=== PATIENT | female | born 1955 | race Caucasian/White ===

== ENCOUNTER 2017-10-22 19:26 | Emergency (ER) | payer OTHER, SELFPAY ==
[2017-10-22 19:30] VITALS: BP 125/69; PULSE 88; RESP 18; TEMP 36.8; O2SAT 96; BMI 47.0
--- NOTE | 2017-10-22 20:07 | DI.US.S_ITS ---
PROCEDURE: US PERIPH VENOUS LOW EXTREM LT INDICATIONS: L. LE pain, edema, post flight TECHNIQUE: Real-time imaging, as well as color and pulse Doppler interrogation, were performed of the lower extremity deep veins from the inguinal ligament to the popliteal fossa. COMPARISON: [facility], , PERIPH.[place] EXT BILAT, 05/28/2016, 11:29. FINDINGS: The deep veins are normally compressible, and free of intraluminal thrombus. Color and pulse Doppler demonstrate normal phasic intraluminal flow. There is normal augmentation response to distal compression maneuver. IMPRESSION: No visualized deep venous thrombosis. Dictated by: Danyelle Rice M.D. on 10/22/2017 at 22:39 Approved by: Danyelle Rice M.D. on 10/22/2017 at 22:40
--- NOTE | 2017-10-22 20:10 | ED.EXTPRO ---
HPI - Extremity Problem <Doris Plata PA-C - Last Filed: 10/31/17 12:16> General Chief complaint: Extremity Problem,Nontraumatic Stated complaint: SWELLING OF FEET LEFT CALF PAIN Time Seen by Provider: 10/22/17 20:03 Source: patient Mode of arrival: ambulatory Limitations: no limitations History of Present Illness HPI Narrative: This 62-year-old female complains of left calf pain today. She states that she took a 10 day trip to [place] and the day after she got there noted increased swelling in both of her legs despite taking her hydrochlorothiazide in the mornings. She states that she had been on her feet and walking a lot. She does have some history of intermittent leg swelling though this is more severe. She also has a history of lymph node removal in her pelvis, not sure whether that continues. She states she was not concerned about this until she started to have left calf pain today without any trauma. She feels like that side is more swollen though typically she does get the most swelling on that side. She denies any chest pain or dyspnea. She denies any abdominal pain or nausea. She does note that she skipped her hydrochlorothiazide today and has been trying to drink more water because of feeling dehydrated from flying. Related Data Home Medications Medication Instructions Recorded Confirmed ALBUTEROL SULFATE (Ventolin / 1 - 2 puff INH #0 06/10/09 Proventil) HYDROCHLOROTHIAZIDE (#HCTZ) 25 mg PO Q DAY #0 02/15/11 beclomethasone dipropionate [Qvar] 40 mcg INH BID #0 05/24/16 esomeprazole magnesium [Nexium] #0 05/24/16 sertraline 25 PO #0 05/24/16 Previous Rx's Medication Instructions Recorded ciprofloxacin HCl [Cipro] 500 mg PO BID #20 tab 05/24/16 hydrocodone-acetaminophen 0 tab PO Q6HP PRN #15 tab 05/24/16 metoclopramide HCl 10 mg PO TIDP PRN #14 tab 05/24/16 metronidazole [Flagyl] 500 mg PO Q6H 10 Days #0 tab 05/24/16 Allergies Allergy/AdvReac Type Severity Reaction Status Date / Time CT DYE Allergy Severe STOP Uncoded 07/13/17 11:59 BREATHING Review of Systems <Doris Plata PA-C - Last Filed: 10/31/17 12:16> Review of Systems All systems reviewed & are unremarkable except as noted in HPI and below PFSH <ANTIONETTE Marcano Last Filed: 10/31/17 12:16> Comment: No ETOH or street drug Exam <ANTIONETTE Marcano Last Filed: 10/31/17 12:16> Narrative Exam Narrative: GENERAL APPEARANCE: Patient sitting comfortably, appears well. NECK: Supple, no JVD LUNGS: Clear to auscultation bilaterally. HEART: Rate and rhythm regular without murmur, normal S1 and S2, no S3 or S4. EXTREMITIES: Moderate pitting bilaterally most notable at the feet and ankles. Right ankle measures 26 cm, left 28. Right calf measures 48 cm, left 49. No tenderness over the right foot, ankle or calf. Moderate tenderness over the left mid calf. None elsewhere over the lower extremity MUSCULOSKELETAL: Full range of motion of both feet and ankles. No tenderness or effusion over the knees Initial Vital Signs Initial Vital Signs: Vital Signs Temperature 98.3 F 10/22/17 19:30 Pulse Rate 88 10/22/17 19:30 Respiratory Rate 18 10/22/17 19:30 Blood Pressure 125/69 H 10/22/17 19:30 Pulse Oximetry 96 10/22/17 19:30 <DO Sara Jorgensen Last Filed: 11/12/17 07:55> Initial Vital Signs Initial Vital Signs: Vital Signs Temperature 98.3 F 10/22/17 19:30 Pulse Rate 88 10/22/17 19:30 Respiratory Rate 18 10/22/17 19:30 Blood Pressure 125/69 H 10/22/17 19:30 Pulse Oximetry 96 10/22/17 19:30 Course <ANTIONETTE Marcano Last Filed: 10/31/17 12:16> Orders Ordered: ED Orders 10/22/17 20:07 US periph venous low extrem lt Stat Vital Signs - 8 hr 10/22/17 19:30 10/22/17 20:18 10/22/17 20:57 Temperature 98.3 F 97.6 F Pulse Rate 88 90 Pulse Rate [Bilateral Dorsalis Pedis] 80 Respiratory Rate 18 16 Blood Pressure 125/69 H Blood Pressure [Left Arm] 138/79 H Pulse Oximetry 96 97 <DO Sara Jorgensen Filed: 11/12/17 07:55> Orders Ordered: ED Orders 10/22/17 20:07 US perip venous low extrem lt Stat Vital Signs - 8 hr 10/22/17 19:30 10/22/17 20:18 10/22/17 20:57 Temperature 98.3 F 97.6 F Pulse Rate 88 90 Pulse Rate [Bilateral Dorsalis Pedis] 80 Respiratory Rate 18 16 Blood Pressure 125/69 H Blood Pressure [Left Arm] 138/79 H Pulse Oximetry 96 97 MDM - Extremity (Nontraumatic) <Doris Plata PA-C - Last Filed: 10/31/17 12:16> Imaging Data Venous US: Radiologist's impression: View Report History Print [address] [address] Ultrasound Report Signed Patient: Rosie Dale MR#: [id number] : 1955 Acct:[id number] Age/Sex: 62 / F Date of Service: 10/22/17 Loc: ED Accession Number: [id number] Procedure: perip venous low extrem lt Ordering Provider: Doris Plata P.A-C PROCEDURE: PERIP VENOUS LOW EXTREM LT INDICATIONS: L. LE pain, edema, post flight TECHNIQUE: Real-time imaging, as well as color and pulse Doppler interrogation, were performed of the lower extremity deep veins from the inguinal ligament to the popliteal fossa. COMPARISON: [facility], [facility].[place] EXT BILAT, 05/28/2016, 11:29. FINDINGS: The deep veins are normally compressible, and free of intraluminal thrombus. Color and pulse Doppler demonstrate normal phasic intraluminal flow. There is normal augmentation response to distal compression maneuver. IMPRESSION: No visualized deep venous thrombosis. Dictated by: Danyelle Rice M.D. on 10/22/2017 at 22:39 Approved by: Danyelle Rice M.D. on 10/22/2017 at 22:40 Discharge Plan Departure Patient Disposition: Home, Self-Care Clinical Impression: Edema of lower extremity, Pain of left calf Discharge Date/Time: 10/22/17 21:18 Interventions: ED Discharge Assessment Last Done: 10/22/17 21:16 Instructions: DI for Edema Due to Venous Stasis Activity Restrictions/Additional Instructions: I think that most of the chronic intermittent swelling in your legs is due to varicose veins, however this could also be partially due to having lymph nodes removed in the past. Please resume taking your hydrochlorothiazide. It is a good idea to use compression stockings when you travel. Drink when you are thirsty but do not overdo fluids or salty foods. Elevate your legs above your heart as much as possible. Talked with her PCP about perhaps changing your diuretic pill at least when traveling since you have noticed this is more of an issue with travel as it is for many people. You should return right away if you have acutely worsening symptoms or new symptoms such as chest pain or shortness of breath. Prescriptions: No Action ALBUTEROL SULFATE (Ventolin / Proventil) 1 - 2 puff INH Qty: 0 RF: 0 HYDROCHLOROTHIAZIDE (#HCTZ) 25 mg PO Q DAY Qty: 0 RF: 0 beclomethasone dipropionate [Qvar] 40 MCG/PUFF aerosol 40 mcg INH BID Qty: 0 RF: 0 esomeprazole magnesium [Nexium] 40 MG capsule,delayed release(DR/EC) Qty: 0 RF: 0 sertraline 25 MG tablet 25 PO Qty: 0 RF: 0 hydrocodone-acetaminophen 5 MG/325 MG tablet PO Q6HP PRNQty: 15 RF: 0 metronidazole [Flagyl] 500 MG tablet 500 mg PO Q6H 10 Days Qty: 0 RF: 0 ciprofloxacin HCl [Cipro] 500 MG tablet 500 mg PO BID Qty: 20 RF: 0 metoclopramide HCl 10 MG tablet 10 mg PO TIDP PRNQty: 14 RF: 0 Referrals: Tom Ramos MD [Primary Care Provider] - <Morgan Guevara DO - Last Filed: 11/12/17 07:55> [facility] ED Attending Cynature Attestation: I was immediately available in the department for consultation. Documentation has been reviewed. I agree with assessment and plan.
[2017-10-22 20:18] VITALS: PULSE 80
--- NOTE | 2017-10-22 20:21 | PC.NURSE ---
Pt recently went to [place] and [place] for 10 days. During her trip, she did a lot of walking and a lot of long bus rides. She had bilateral foot and ankle swelling with pain and tightness the entire trip. After her flight home yesterday, she developed left posterior calf pain that radiates up into the thigh. She has a history of uterine cancer and had several pelvic lymph nodes removed and reports she has had bilateral lower extremity swelling in the past, but not this severe.
--- NOTE | 2017-10-22 20:29 | ED_ITS ---
HPI - Extremity Problem <Doris Plata PA-C - Last Filed: 10/31/17 12:16> General Chief complaint: Extremity Problem,Nontraumatic Stated complaint: SWELLING OF FEET LEFT CALF PAIN Time Seen by Provider: 10/22/17 20:03 Source: patient Mode of arrival: ambulatory Limitations: no limitations History of Present Illness HPI Narrative: This 62-year-old female complains of left calf pain today. She states that she took a 10 day trip to [place] and the day after she got there noted increased swelling in both of her legs despite taking her hydrochlorothiazide in the mornings. She states that she had been on her feet and walking a lot. She does have some history of intermittent leg swelling though this is more severe. She also has a history of lymph node removal in her pelvis, not sure whether that continues. She states she was not concerned about this until she started to have left calf pain today without any trauma. She feels like that side is more swollen though typically she does get the most swelling on that side. She denies any chest pain or dyspnea. She denies any abdominal pain or nausea. She does note that she skipped her hydrochlorothiazide today and has been trying to drink more water because of feeling dehydrated from flying. Related Data Home Medications Medication Instructions Recorded Confirmed ALBUTEROL SULFATE (Ventolin / 1 - 2 puff INH #0 06/10/09 Proventil) HYDROCHLOROTHIAZIDE (#HCTZ) 25 mg PO Q DAY #0 02/15/11 beclomethasone dipropionate [Qvar] 40 mcg INH BID #0 05/24/16 esomeprazole magnesium [Nexium] #0 05/24/16 sertraline 25 PO #0 05/24/16 Previous Rx's Medication Instructions Recorded ciprofloxacin HCl [Cipro] 500 mg PO BID #20 tab 05/24/16 hydrocodone-acetaminophen 0 tab PO Q6HP PRN #15 tab 05/24/16 metoclopramide HCl 10 mg PO TIDP PRN #14 tab 05/24/16 metronidazole [Flagyl] 500 mg PO Q6H 10 Days #0 tab 05/24/16 Allergies Allergy/AdvReac Type Severity Reaction Status Date / Time CT DYE Allergy Severe STOP Uncoded 07/13/17 11:59 BREATHING Review of Systems <Doris Plata PA-C - Last Filed: 10/31/17 12:16> Review of Systems All systems reviewed & are unremarkable except as noted in HPI and below PFSH <ANTIONETTE Marcano Last Filed: 10/31/17 12:16> Comment: No ETOH or street drug Exam <ANTIONETTE Marcano Last Filed: 10/31/17 12:16> Narrative Exam Narrative: GENERAL APPEARANCE: Patient sitting comfortably, appears well. NECK: Supple, no JVD LUNGS: Clear to auscultation bilaterally. HEART: Rate and rhythm regular without murmur, normal S1 and S2, no S3 or S4. EXTREMITIES: Moderate pitting bilaterally most notable at the feet and ankles. Right ankle measures 26 cm, left 28. Right calf measures 48 cm, left 49. No tenderness over the right foot, ankle or calf. Moderate tenderness over the left mid calf. None elsewhere over the lower extremity MUSCULOSKELETAL: Full range of motion of both feet and ankles. No tenderness or effusion over the knees Initial Vital Signs Initial Vital Signs: Vital Signs Temperature 98.3 F 10/22/17 19:30 Pulse Rate 88 10/22/17 19:30 Respiratory Rate 18 10/22/17 19:30 Blood Pressure 125/69 H 10/22/17 19:30 Pulse Oximetry 96 10/22/17 19:30 <DO Sara Jorgensen Last Filed: 11/12/17 07:55> Initial Vital Signs Initial Vital Signs: Vital Signs Temperature 98.3 F 10/22/17 19:30 Pulse Rate 88 10/22/17 19:30 Respiratory Rate 18 10/22/17 19:30 Blood Pressure 125/69 H 10/22/17 19:30 Pulse Oximetry 96 10/22/17 19:30 Course <ANTIONETTE Marcano Last Filed: 10/31/17 12:16> Orders Ordered: ED Orders 10/22/17 20:07 US periph venous low extrem lt Stat Vital Signs - 8 hr 10/22/17 19:30 10/22/17 20:18 10/22/17 20:57 Temperature 98.3 F 97.6 F Pulse Rate 88 90 Pulse Rate [Bilateral Dorsalis Pedis] 80 Respiratory Rate 18 16 Blood Pressure 125/69 H Blood Pressure [Left Arm] 138/79 H Pulse Oximetry 96 97 <DO Sara Jorgensen Filed: 11/12/17 07:55> Orders Ordered: ED Orders 10/22/17 20:07 US perip venous low extrem lt Stat Vital Signs - 8 hr 10/22/17 19:30 10/22/17 20:18 10/22/17 20:57 Temperature 98.3 F 97.6 F Pulse Rate 88 90 Pulse Rate [Bilateral Dorsalis Pedis] 80 Respiratory Rate 18 16 Blood Pressure 125/69 H Blood Pressure [Left Arm] 138/79 H Pulse Oximetry 96 97 MDM - Extremity (Nontraumatic) <Doris Plata PA-C - Last Filed: 10/31/17 12:16> Imaging Data Venous US: Radiologist's impression: View Report History Print [address] [address] Ultrasound Report Signed Patient: Rosie Dale MR#: [id number] : 1955 Acct:[id number] Age/Sex: 62 / F Date of Service: 10/22/17 Loc: ED Accession Number: [id number] Procedure: perip venous low extrem lt Ordering Provider: Doris Plata P.A-C PROCEDURE: PERIP VENOUS LOW EXTREM LT INDICATIONS: L. LE pain, edema, post flight TECHNIQUE: Real-time imaging, as well as color and pulse Doppler interrogation, were performed of the lower extremity deep veins from the inguinal ligament to the popliteal fossa. COMPARISON: [facility], [facility].[place] EXT BILAT, 05/28/2016, 11:29. FINDINGS: The deep veins are normally compressible, and free of intraluminal thrombus. Color and pulse Doppler demonstrate normal phasic intraluminal flow. There is normal augmentation response to distal compression maneuver. IMPRESSION: No visualized deep venous thrombosis. Dictated by: Danyelle Rice M.D. on 10/22/2017 at 22:39 Approved by: Danyelle Rice M.D. on 10/22/2017 at 22:40 Discharge Plan Departure Patient Disposition: Home, Self-Care Clinical Impression: Edema of lower extremity, Pain of left calf Discharge Date/Time: 10/22/17 21:18 Interventions: ED Discharge Assessment Last Done: 10/22/17 21:16 Instructions: DI for Edema Due to Venous Stasis Activity Restrictions/Additional Instructions: I think that most of the chronic intermittent swelling in your legs is due to varicose veins, however this could also be partially due to having lymph nodes removed in the past. Please resume taking your hydrochlorothiazide. It is a good idea to use compression stockings when you travel. Drink when you are thirsty but do not overdo fluids or salty foods. Elevate your legs above your heart as much as possible. Talked with her PCP about perhaps changing your diuretic pill at least when traveling since you have noticed this is more of an issue with travel as it is for many people. You should return right away if you have acutely worsening symptoms or new symptoms such as chest pain or shortness of breath. Prescriptions: No Action ALBUTEROL SULFATE (Ventolin / Proventil) 1 - 2 puff INH Qty: 0 RF: 0 HYDROCHLOROTHIAZIDE (#HCTZ) 25 mg PO Q DAY Qty: 0 RF: 0 beclomethasone dipropionate [Qvar] 40 MCG/PUFF aerosol 40 mcg INH BID Qty: 0 RF: 0 esomeprazole magnesium [Nexium] 40 MG capsule,delayed release(DR/EC) Qty: 0 RF: 0 sertraline 25 MG tablet 25 PO Qty: 0 RF: 0 hydrocodone-acetaminophen 5 MG/325 MG tablet PO Q6HP PRNQty: 15 RF: 0 metronidazole [Flagyl] 500 MG tablet 500 mg PO Q6H 10 Days Qty: 0 RF: 0 ciprofloxacin HCl [Cipro] 500 MG tablet 500 mg PO BID Qty: 20 RF: 0 metoclopramide HCl 10 MG tablet 10 mg PO TIDP PRNQty: 14 RF: 0 Referrals: Tom Ramos MD [Primary Care Provider] - <Morgan Guevara DO - Last Filed: 11/12/17 07:55> [facility] ED Attending Cynature Attestation: I was immediately available in the department for consultation. Documentation has been reviewed. I agree with assessment and plan.
[2017-10-22 20:57] VITALS: BP 138/79; PULSE 90; RESP 16; TEMP 36.4; O2SAT 97
== END 2017-10-22 21:18 | disposition home or self-care (01) ==
PROVIDERS: Emergency Provider Internal Medicine; Family Provider Family Medicine; PCP Family Medicine
DX: M79.662 Pain in left lower leg (principal); R60.0 Localized edema
CPT/HCPCS: 93971; 99282; 99284

== ENCOUNTER → 2018-01-03 07:13 | Outpatient (CLI) | payer OTHER, SELFPAY ==
--- NOTE | 2018-01-03 | DI.US.S_ITS ---
PROCEDURE: US ABDOMEN COMPLETE INDICATIONS: FATTY LIVER, ELEVATED LIVER ENZYMES TECHNIQUE: Real-time scanning was performed of the abdominal and retroperitoneal organs, with image documentation. COMPARISON: [facility], CT, ABDOMEN/PELVIS WITHOUT CONTRAS, 05/24/2016, 2:48. FINDINGS: Liver: Liver is normal in size and homogeneous in echotexture. Gallbladder: Surgically absent. Biliary ducts: Intrahepatic bile ducts are non-dilated. Extrahepatic bile duct caliber measures 7.6 mm. Normal is 6-7 mm or less in diameter, or 10 mm or less post-cholecystectomy. Pancreas: Visualized portions of the pancreas are sonographically normal. Spleen: Spleen is normal in size and homogeneous in echotexture. Kidneys: Kidneys are normal in size and echotexture. Right kidney measures 10.8 cm long; left kidney measures 9.9 cm long. No hydronephrosis or nephrolithiasis. No solid masses. Aorta: Visualized aorta is normal in caliber at less than 3 cm. Iliacs: Proximal common iliac arteries are normal in caliber at less than 2.5 cm. IVC: Intrahepatic inferior vena cava is patent. Miscellaneous: No free abdominal fluid. IMPRESSION: 1. Increased hepatic echogenicity noted possibly related to hepatic steatosis but other sources of hepatocellular disease cannot be excluded. Recommend clinical correlation. Dictated by: Juventino SUGGS Interpreted: Lamine Leahy MD on 01/03/2018 at 9:14 Approved by: Lamine Leahy M.D. on 01/04/2018 at 12:32
== END ==
PROVIDERS: Family Provider Family Medicine; PCP Family Medicine; Referring Provider Radiology Therapeutic Radiology; Visit Provider Family Medicine
DX: K76.0 Fatty (change of) liver, not elsewhere classified (principal); R74.8 Abnormal levels of other serum enzymes
CPT/HCPCS: 76700

== ENCOUNTER → 2018-01-05 13:27 | Outpatient (CLI) | payer OTHER, SELFPAY ==
--- NOTE | 2018-01-06 09:40 | DIET.PN ---
Diabetes Intake: Initial Assessment Assess: 62 YOF referred for type 2 diabetes. Pt newly diagnosed with diabetes, but reports family history. She has been keeping a food journal and monitoring BG 2-3 times per day. She presents with some knowledge of diabetes and has began cutting down on serving sizes and carbohydrate foods, replacing them with high fat sources. Pt also reports medical history of fatty liver, IBS, abdominal pain, and post uterine cancer. Has taken several rounds of prednisone in the past which she believes could have been the start of the elevated blood sugar. Since making dietary changes she has noticed her readings have gone significantly down, starting in the 200's trending down to 150's. Patient has also lost 5 lbs in the last month. Labs: Per pt report: A1c: 9.9 FB-186 1-2 hr PP: 120-220 Meds: metformin 750mg BID Wt: 307 Ht: 67.5 BMI:47.4 (obese class III) DX: Altered nutrition related laboratory values related to impaired glucose metabolism, lack of previous exposure to nutrition information as evidenced by pt report, diagnosis of diabetes, previous diet high in refined carbohydrates. Intervention: 1. Completed intake assessment. Discussed barriers to care. 2. Discussed pathophysiology of diabetes. Reviewed A1c and its correlation to blood glucose numbers. Discussed recommended BG ranges. 3. Discussed importance of self-monitoring, how often, and when to check. Pt provided demonstration on use of glucometer. 4. Reviewed hyper/hypoglycemia and treatment. 5. Reviewed safe disposal of equipment (strip/lancets/insulin needles). 6. Created SMART goals for pt self-care and success. 7. Discussed program curriculum outline based on available referral hours. SMART Goals: 1. Pt would like to lose 1-2 lbs per week through changes in eating patterns and increasing physical activity. Pt will walk 20 min/day 5x/wk and increase as tolerated. 2. Pt A1c goal of 8.5 in the next 3 mo through dietary change, portion control, and CHO counting. Overall goal of 7.0 in the next 6 mo. 3. Pt will monitor BID QID, checking daily FBG and 2 hr PP. Monitor/Evaluate: Anticipate excellent compliance. Pt has requested full DSME program (15 available hours). Basic Nutrition scheduled for Jan 24.
--- NOTE | 2018-02-03 12:24 | DIET.PN ---
DIABETES Nutrition Initial Assessment:? ASSESS:???Pt recently [place] from [place]. Presented slightly discouraged with BG. States she has not been on her normal schedule with eating and monitoring. Has had an upset stomach (reflux like) for several weeks. She believes this to be gastroparesis or something similar. Pt also reports she has not worn her CPAP for some time which has affected her sleep habits. ? LABS: Per pt report:? FB-145 2hrPP: 120-150 (noticing more elevated BG in the morning) ? MEDS:?? metformin ? DIET: Per 24-hour recall:? Weight: 295.7 (down 11#) Ht:? 67.5 ? Exercise:? Walks, not consistent NUTRITION DX ? (1) Altered Nutrition related labs related to impaired glucose metabolism, lack of previous exposure to accurate nutrition information as evidenced by pt report, dx of diabetes, previous diet high in refined carbohydrates.? INTERVENTION(s): ??? (1) Discussed pathophysiology of diabetes and impact of nutrition/diet on blood sugar control.? Discussed fed versus non-fed state.? (2) Discussed the effect of carbohydrates/protein/fat on blood sugar control.? Stressed importance of consistent carbohydrate intake at each meal and provided instructions for recommended servings/portions of carbohydrates/protein per meal. Provided pt with individualized meal plan. ? (3) Reviewed carbohydrate counting and measuring carbohydrate content via servings sizes and reading nutrition labels.? Provided handouts.? (4) Discussed the difference between simple versus complex carbohydrates and the effect of fiber on blood sugar control.? Discussed various methods to increase fiber content in diet. ? (5) Stressed importance of meal timing and not going >4-5 hours between meals. Encouraged adding protein to evening snack to support glucose control overnight. Patient agreeable. ? (6) Discussed healthy weight loss goals of 1-2lbs per week through diet and exercise.? Pt agreeable to walking at least 30 minutes daily. MONITOR/EVALUATE: Anticipate excellent compliance.? Nutrition follow-up scheduled for 1 week to discuss protein, fat, sugar substitutes, dining out.
== END ==
PROVIDERS: Family Provider Family Medicine; PCP Family Medicine; Visit Provider Family Medicine
DX: E11.9 Type 2 diabetes mellitus without complications (principal)
CPT/HCPCS: 97802

== ENCOUNTER → 2018-02-03 10:59 | Outpatient (CLI) | payer OTHER, SELFPAY | PROVIDERS: Family Provider Family Medicine; PCP Family Medicine; Visit Provider Family Medicine | DX: E11.9 Type 2 diabetes mellitus without complications (principal) | CPT/HCPCS: 97803 ==

== ENCOUNTER → 2018-05-12 11:44 | Outpatient (CLI) | payer OTHER, SELFPAY ==
--- NOTE | 2018-05-12 | DI.MG.S_ITS ---
BILATERAL DIGITAL SCREENING MAMMOGRAM 3D/2D WITH CAD: 05/12/2018 CLINICAL: Routine screening. Family history of breast cancer. Comparison is made to exams dated: 02/06/2016 mammogram, 01/23/2013 mammogram - [facility], and 09/13/2011 mammogram - [facility]. There are scattered fibroglandular elements in both breasts. Current study was also evaluated with a Computer Aided Detection (CAD) system. No significant masses, calcifications, or other findings are seen in either breast. There has been no significant interval change. IMPRESSION: NEGATIVE There is no mammographic evidence of malignancy. A 1 year screening mammogram is recommended. This exam was interpreted at Station ID: [id number]. NOTE: For mammograms, a report in lay terms will be sent to the patient. Approximately 15% of breast malignancies will not be visualized mammographically. In the management of a palpable breast mass, a negative mammogram must not discourage biopsy of a clinically suspicious lesion. Electronically Signed By: Vladimir julio/octavio:05/12/2018 12:52:09 copy to: Eleuterio Joshi letter sent: Normal Exam ACR BI-RADS Category 1: Negative [id number]
== END ==
PROVIDERS: Family Provider Family Medicine; PCP Family Medicine; Visit Provider Family Medicine
DX: Z12.31 Encounter for screening mammogram for malignant neoplasm of breast (principal); Z80.3 Family history of malignant neoplasm of breast
CPT/HCPCS: 77063; 77067

== ENCOUNTER → 2019-11-25 14:56 | Outpatient (CLI) | payer OTHER, SELFPAY ==
[2019-11-26 11:11] LABS: COVID19 Sendout Not Detected (Not Detect)
== END ==
PROVIDERS: Family Provider Family Medicine; PCP Family Medicine; Visit Provider Nurse Practitioner
DX: Z11.59 Encounter for screening for other viral diseases (principal)
CPT/HCPCS: 87635

== ENCOUNTER → 2021-07-24 13:59 | Outpatient (ROUT) | payer OTHER, SELFPAY ==
[2021-07-24 14:14] LABS: D Dimer < 200 ng/mL (<230)
== END ==
PROVIDERS: Visit Provider Student in an Organized Health Care Education/Training Program
DX: M79.604 Pain in right leg (principal); I83.90 Asymptomatic varicose veins of unspecified lower extremity
CPT/HCPCS: 85379

== ENCOUNTER → 2022-03-02 12:14 | Outpatient (CLI) | payer OTHER, SELFPAY ==
--- NOTE | 2022-03-02 | DI.RAD.S_ITS ---
PROCEDURE: XR CHEST 2V INDICATIONS: Acute cough TECHNIQUE: 2 views of the chest were acquired. COMPARISON: [facility], , CHEST 2 VIEW, 03/10/2015, 17:20. FINDINGS: Surgical changes and devices: Cholecystectomy clips. Lungs and pleura: Lungs are clear. No pleural effusions or pneumothorax. Eventration of the right hemidiaphragm. Mediastinum: Mediastinal contours are normal. Heart size is normal. Bones and chest wall: No suspicious bony abnormalities. Soft tissues appear unremarkable. IMPRESSION: No acute cardiopulmonary disease process. Dictated by: Siomara Banks MD, PhD on 03/02/2022 at 13:56 Approved by: Siomara Banks MD, PhD on 03/02/2022 at 13:57
[2022-03-02 13:28] LABS: Influenza A - CEPHEID Flu A POSITIVE (NEGATIVE); Influenza B - CEPHEID Flu B NEGATIVE (NEGATIVE); Respiratory Syncytial Virus Negative (Negative)
[2022-03-02 13:32] LABS: COVID-19 CEPHEID 4-PLEX PCR Negative (Negative)
== END ==
PROVIDERS: PCP Registered Nurse; Referring Provider Registered Nurse; Visit Provider Registered Nurse
DX: J06.9 Acute upper respiratory infection, unspecified (principal); R05.1 Acute cough
CPT/HCPCS: 0241U; 71046

== ENCOUNTER → 2022-08-02 15:36 | Outpatient (CLI) | payer OTHER, SELFPAY ==
--- NOTE | 2022-08-02 | DI.US.S_ITS ---
PROCEDURE: US RENAL COMPLETE INDICATIONS: LEFT FLANK PAIN TECHNIQUE: Real-time scanning was performed of the kidneys and bladder, with image documentation. COMPARISON: [facility], US, US ABDOMEN COMPLETE, 01/03/2018, 7:52. FINDINGS: Limited examination due to patient body habitus and bowel gas. Kidneys: Right kidney measures 10.9 cm long; left kidney measures 10.0 cm long. Right renal cortical thickness is 1.9 cm; left renal cortical thickness is 1.0 cm. No obvious hydronephrosis or nephrolithiasis. Bladder: Pre-void bladder volume is 23 mL. Post-void images not obtained due to low initial bladder volume. Pre-void images demonstrate no intraluminal masses or stones. On pre-void images, both ureteral jets are noted with color Doppler interrogation. (Of note, ureteral jets may not be detectable in up to 25% of cases due to insufficient differences in specific gravity between ureteral and bladder urine). IMPRESSION: 1. Significantly limited exam due to technical factors as above. 2. No obvious nephrolithiasis or hydronephrosis identified, however neither can be excluded given the significant technical limitations. CT KUB could be obtained for further evaluation if indicated. Dictated by: Parth Richard M.D. on 08/02/2022 at 17:31 Approved by: Parth Richard M.D. on 08/02/2022 at 17:33
== END ==
PROVIDERS: PCP Registered Nurse; Referring Provider Registered Nurse; Visit Provider Registered Nurse
DX: N20.9 Urinary calculus, unspecified (principal); R10.32 Left lower quadrant pain
CPT/HCPCS: 76770

== ENCOUNTER → 2022-08-27 08:47 | Outpatient (CLI) | payer OTHER, SELFPAY ==
--- NOTE | 2022-08-27 | DI.CT.S_ITS ---
PROCEDURE: CT KIDNEY URETER BLADDER (KUB) INDICATIONS: Left lower quadrant pain/Urinary calculus TECHNIQUE: Axial sections were acquired from the lung bases to the pubic symphysis. Coronal and sagittal reformats were performed. For radiation dose reduction, the following was used: automated exposure control, adjustment of mA and/or kV according to patient size. COMPARISON: [facility], CT, ABDOMEN/PELVIS WITHOUT CONTRAS, 05/24/2016, 2:48. FINDINGS: Image quality: Excellent. Lung bases: Mild atelectasis in the right middle lobe. No pleural effusion. Heart: Coronary artery calcifications. URINARY: Right Kidney: No stones or hydronephrosis. Right Ureter: No hydroureter. Left Kidney: No stones or hydronephrosis. Left Ureter: No hydroureter. Bladder: Decompressed. No stones. Multiple phleboliths in the pelvis are unchanged. ABDOMEN: Liver: Unremarkable. Gallbladder: Absent. Biliary ducts: Unremarkable. Pancreas: Unremarkable. Spleen: Unremarkable. Adrenal Glands: No nodule. Stomach and Bowel: Stomach, small bowel loops, and colon are unremarkable. Diverticulosis. Normal appendix. Peritoneum: No abnormal intraperitoneal fluid. No free air. Ventral Wall: No hernia. Abdominal Nodes: No enlarged retroperitoneal or mesenteric lymph nodes. Vessels: Aorta and inferior vena cava are normal in size. PELVIS: Pelvic Organs: Uterus is absent. Pelvic Nodes: Unremarkable. Miscellaneous: No inguinal hernias are seen. Bones: No aggressive appearing lesion. Mild sclerosis at the left SI joint, (270). Bilateral hip DJD. IMPRESSION: No hydronephrosis. No kidney stones seen. Dictated by: Isidro Travis M.D. on 08/27/2022 at 10:09 Approved by: Isidro Travis M.D. on 08/27/2022 at 10:15
== END ==
PROVIDERS: PCP Registered Nurse; Referring Provider Registered Nurse; Visit Provider Registered Nurse
DX: R10.32 Left lower quadrant pain (principal)
CPT/HCPCS: 74176

== ENCOUNTER → 2022-11-05 12:42 | Outpatient (ROUT) | payer OTHER, SELFPAY ==
[2022-11-05 13:46] LABS: Influenza A - CEPHEID Flu A NEGATIVE (NEGATIVE); Influenza B - CEPHEID Flu B NEGATIVE (NEGATIVE); Respiratory Syncytial Virus Negative (Negative)
[2022-11-05 13:55] LABS: COVID-19 CEPHEID 4-PLEX PCR Negative (Negative)
== END ==
PROVIDERS: PCP Registered Nurse; Visit Provider Registered Nurse
DX: Z20.822 Contact with and (suspected) exposure to COVID-19 (principal)
CPT/HCPCS: 0241U

== ENCOUNTER → 2023-01-20 12:47 | Outpatient (CLI) | payer OTHER, SELFPAY ==
--- NOTE | 2023-01-20 | DI.MG.S_ITS ---
BILATERAL DIGITAL SCREENING MAMMOGRAM 3D/2D WITH CAD: 01/20/2023 CLINICAL: Routine screening. Family history of breast cancer. Comparison is made to exams dated: 05/12/2018 mammogram, 02/06/2016 mammogram, and 01/23/2013 mammogram - [facility]. There are scattered areas of fibroglandular density in both breasts (category b / 25%-50% glandular tissue). Current study was also evaluated with a Computer Aided Detection (CAD) system. No significant masses, calcifications, or other findings are seen in either breast. There has been no significant interval change. IMPRESSION: NEGATIVE There is no mammographic evidence of malignancy. A 1 year screening mammogram is recommended. Based on the Tyrer Cuzick model (a risk assessment model) the patient's lifetime risk is 8.2% and her 10 year risk is 4.6%. According to the ACR, ACS, and NCCN guidelines, an annual breast MRI exam along with mammogram is recommended if the patient's lifetime risk is 20% or greater. This exam was interpreted at Station ID: [id number]. NOTE: For mammograms, a report in lay terms will be sent to the patient. Approximately 15% of breast malignancies will not be visualized mammographically. In the management of a palpable breast mass, a negative mammogram must not discourage biopsy of a clinically suspicious lesion. Electronically Signed By: Margoth [email or web address]:01/20/2023 17:23:46 copy to: Eleuterio Joshi letter sent: Normal Exam ACR BI-RADS Category 1: Negative 3341F
== END ==
PROVIDERS: PCP Registered Nurse; Referring Provider Registered Nurse; Visit Provider Registered Nurse
DX: Z12.31 Encounter for screening mammogram for malignant neoplasm of breast (principal); Z80.3 Family history of malignant neoplasm of breast
CPT/HCPCS: 77063; 77067

== ENCOUNTER → 2023-08-22 14:25 | Outpatient (CLI) | payer OTHER, SELFPAY ==
--- NOTE | 2023-08-22 | DI.RAD.S_ITS ---
PROCEDURE: XR SACRUM COCCYX MIN 2V INDICATIONS: PAIN TECHNIQUE: 3 views of the sacrum and coccyx acquired. COMPARISON: None. FINDINGS: Bones: No fractures or dislocations. No suspicious bony lesions. Soft tissues: Visualized bowel gas pattern is normal. No suspicious soft tissue densities. IMPRESSION: No visualized acute fracture or dislocation. However, if clinical concern and/or pain persist, short interval imaging followup in 7-10 days is recommended, as occult injury cannot be definitively excluded. Dictated by: Danyelle Rice M.D. on 08/22/2023 at 20:24 Approved by: Danyelle Rice M.D. on 08/22/2023 at 20:25
--- NOTE | 2023-08-22 14:27 | DI.RAD.S_ITS ---
PROCEDURE: XR HAND RT MIN 3V INDICATIONS: INDEX FINGER SWELLING TECHNIQUE: 3 views of the hand(s) acquired. COMPARISON: None. FINDINGS: Bones: No fractures or dislocations. Carpal bones are normally aligned. No suspicious bony lesions. Scattered IP narrowing. No distinct erosions. 1st CMC narrowing is also present. Soft tissues: No suspicious soft tissue calcifications. IMPRESSION: Scattered IP and 1st CMC narrowing most consistent with degenerative change. Dictated by: Danyelle Rice M.D. on 08/22/2023 at 20:24 Approved by: Danyelle Rice M.D. on 08/22/2023 at 20:24
== END ==
PROVIDERS: PCP Registered Nurse; Referring Provider Registered Nurse; Visit Provider Registered Nurse
DX: M79.644 Pain in right finger(s) (principal); M53.3 Sacrococcygeal disorders, not elsewhere classified
CPT/HCPCS: 72220; 73130

== ENCOUNTER 2024-05-23 04:45 | Emergency (ER) | payer OTHER, SELFPAY ==
[2024-05-23] VITALS (54 sets, daily range): BP systolic 116–195; BP diastolic 57–101; PULSE 77–108; RESP 9–30; TEMP 37.1; O2SAT 93–98; BMI 43.7
--- NOTE | 2024-05-23 05:00 | DI.RAD.S_ITS ---
PROCEDURE: XR CHEST 1V INDICATIONS: chest pain TECHNIQUE: One view of the chest was acquired. COMPARISON: [facility], [place], XR CHEST 2V, 03/02/2022, 12:35. FINDINGS: Surgical changes and devices: None. Lungs and pleura: Lungs are clear. No pleural effusions or pneumothorax. Mediastinum: Mediastinal contours appear normal. Heart size is normal. Bones and chest wall: No suspicious bony lesions. Overlying soft tissues appear unremarkable. IMPRESSION: No acute cardiopulmonary abnormality is seen. Dictated by: Saúl Leija M.D. on 05/23/2024 at 8:54 Approved by: Saúl Leija M.D. on 05/23/2024 at 8:54
--- NOTE | 2024-05-23 05:00 | EKG_ITS ---
[address] [address] Test Date: 2024-05-23 Pat Name: Rosie Dale Department: [facility] Room: Gender: Female [employer]utter: ELIE : 1955 Requested By: Order Number: [id number] Reading MD: Georges Mc MD Measurements Intervals [place] Rate: 89 P: 47 DE: 132 QRS: 4 QRSD: 86 T: 47 QT: 384 QTc: 467 Interpretive Statements Sinus rhythm with premature supraventricular complexes Electronically Signed On 05-23-2024 7:30:45 PST by Georges Mc MD
--- NOTE | 2024-05-23 05:08 | PC.NURSE ---
Called RT for EKG
[2024-05-23 05:18] LABS: Add Manual Diff / Slide Review NO; Basophils Absolute Auto 0 /uL (0-100); Basophils Percent Auto 0.7 % (0-2); Eosinophils Absolute Auto 100 /uL (0-450); Eosinophils Percent Auto 1.8 % (2-4); Hematocrit 39.7 % (36-46); Hemoglobin 13.2 g/dL (12.0-16.0); Lymphocytes Absolute Auto 1300 /uL (1100-4500); Lymphocytes Percent Auto 19.1 % (25-40); Mean Corpuscular HGB Conc 33.3 % (30-36); Mean Corpuscular Hemoglobin 28.8 PG (26-34); Mean Corpuscular Volume 86.6 fL (80-100); Monocytes Absolute Auto 400 /uL (0-900); Monocytes Percent Auto 6.7 % (3-14); Neutrophils Absolute Auto 4800 /uL (1500-7000); Neutrophils Percent Auto 71.7 % (50-75); Platelet Count 286 X10^3/uL (150-400); Red Blood Cell Count 4.58 X10^6/uL (4.0-5.2); Red Cell Distribution Width 14.6 % (11.6-14.8); White Blood Cell Count 6.6 X10^3/uL (4.5-11.0)
[2024-05-23] MEDS: ASPIRIN 81 MG CHEW TAB 324 MG PO (05:18)
[2024-05-23 05:24] LABS: Prothrombin Time 11.2 SECONDS (9.4-12.5)
[2024-05-23 05:27] LABS: PTT Partial Thromboplastin Tim 38 SECONDS (25.1-36.5)
[2024-05-23 05:29] LABS: Alanine Aminotransferase 20 IU/L (<35); Albumin 4.2 g/dL (3.5-5.0); Albumin Globulin Ratio 1.4 (1.0-2.8); Alkaline Phosphatase 87 U/L (38-126); Aspartate Aminotransferase 22 IU/L (14-36); BUN Creatinine Ratio 24.7 (6-22); Bilirubin Total 0.9 mg/dL (0.2-1.3); Blood Urea Nitrogen 19 mg/dL (7-17); Calcium 9.7 mg/dL (8.4-10.2); Carbon Dioxide 27 mmol/L (22-32); Chloride 104 mmol/L (98-107); Creatine Kinase 47 U/L (30-135); Estimated Glomerular Filt Rate > 60 mL/min (>60); Globulin 2.9 g/dL (1.7-4.1); Glucose 199 mg/dL (80-110); HEMOLYSIS < 15 (0-50); Lipase 158 U/L (23-300); Magnesium 1.8 mg/dL (1.6-2.3); Potassium 4.2 mmol/L (3.4-5.1); Sodium 138 mmol/L (137-145); Total Protein 7.1 g/dL (6.3-8.2)
[2024-05-23 05:40] LABS: NT-proBNP (BNP-Adult 18+) 75 pg/mL (<125); Troponin I < 0.012 ng/mL (0.01-0.034)
--- NOTE | 2024-05-23 05:49 | ED_ITS ---
HPI - Chest Pain <Jimbo Latham MD - Last Filed: 05/25/24 03:22> General Chief Complaint: Chest Pain Stated Complaint: chest pain Time Seen by Provider: 05/23/24 05:05 Source: patient Mode of arrival: Ambulatory Limitations: no limitations History of Present Illness HPI narrative: 69-year-old female has recent upper respiratory sinus symptoms for 3 weeks, completed course of oral Augmentin for sinus infection a few days ago, still having cough productive of white sputum after previous yellow-green sputum, using inhaler. She complains of epigastric area lower chest discomfort. Radiates to her back. No diaphoresis. She has history of gastroparesis and reflux, this feels different. Related Data Home Medications Medication Instructions Recorded Confirmed blood sugar diagnostic (OneTouch #10 ea 08/21/21 05/23/24 Verio test strips) ciclesonide 80 mcg/actuation 1 puff inhalation BID 08/21/21 05/23/24 aerosol inhaler (Alvesco) famotidine 20 mg tablet (Pepcid) 20 mg PO BID PRN Acid Reflux 08/21/21 05/23/24 glipizide 5 mg tablet 10 mg PO BID 08/21/21 05/23/24 hydrochlorothiazide 25 mg tablet 25 mg PO DAILY 08/21/21 05/23/24 metformin 1,000 mg tablet 1,000 mg PO BID 08/21/21 05/23/24 pravastatin 10 mg tablet 10 mg PO DAILY 08/21/21 05/23/24 sertraline 25 mg tablet 25 mg PO DAILY #0 tabs 08/21/21 05/23/24 pantoprazole 40 mg tablet,delayed 40 mg PO DAILY 12/17/21 05/23/24 release acetaminophen 1,000 mg PO Q6HR PRN Pain (Scale 05/23/24 05/23/24 Score 1-3) albuterol sulfate 90 mcg/actuation 2 puff inhalation Q6H PRN wheezing 05/23/24 05/23/24 aerosol inhaler fluticasone furoate 27.5 1 - 2 spray intranasal DAILY 05/23/24 05/23/24 mcg/actuation nasal spray,suspension (Flonase Sensimist) insulin glargine-yfgn 100 unit/mL 40 unit SUBCUT 1XD 05/23/24 05/23/24 (3 mL) subcutaneous pen promethazine 25 mg tablet 25 mg PO QID PRN 05/23/24 05/23/24 nausea/vomiting/gastroparesis Allergies Allergy/AdvReac Type Severity Reaction Status Date / Time levofloxacin Allergy Severe Muscle Pain Verified 05/23/24 04:50 CT DYE Allergy Severe STOP Uncoded 12/17/21 13:01 BREATHING Patient History <Jimbo Latham MD - Last Filed: 05/25/24 03:22> Medical History Asthma Back pain Bilateral lower extremity edema Connective tissue disease Depression, major, 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) Fibromyalgia Foot pain GERD without esophagitis Headache History of colon polyps History of urinary incontinence (~2017) History of uterine cancer History of uterine cancer (~2013) HTN (hypertension) Knee pain Mixed hyperlipidemia Severe obesity Sjogren's syndrome Skin rash Sleep apnea (~1999) Surgical History Anesthesia Status post bilateral salpingo-oophorectomy (BSO) (~2014) Status post cholecystectomy (~1984) Family History Father COPD (chronic obstructive pulmonary disease) Sepsis Mother History of heart disease Hyperlipidemia Brother History of heart disease Diabetes mellitus Hyperlipidemia Sister COPD (chronic obstructive pulmonary disease) History of heart disease Diabetes mellitus Hyperlipidemia Grandmother Cancer Social History Smoking Status: Never smoker Smoking Status: Never smoker alcohol intake frequency: holidays/special occasions only Exam <Jimbo Latham MD - Last Filed: 05/25/24 03:22> Narrative Exam Narrative: GENERAL: Well-developed patient, in mild distress. HEAD: Atraumatic. Normocephalic. EYES: Pupils equal round and reactive. Extraocular motions intact. No scleral icterus. No injection or drainage. ENT: Nose without bleeding, purulent drainage. Throat without erythema, tonsillar hypertrophy or exudate. Airway patent. NECK: Trachea midline. Non tender CARDIOVASCULAR: Regular rate and rhythm without murmurs, gallops, or rubs. No chest wall tenderness. RESPIRATORY: Clear to auscultation. Breath sounds equal bilaterally. No wheezes, rales, or rhonchi. GASTROINTESTINAL: Abdomen soft, non-tender, nondistended. EXTREMITIES: No edema or joint tenderness. BACK: Nontender without deformity or crepitance. No flank tenderness. NEURO: AOx3. Motor functions grossly nonfocal SKIN: No rash or erythema of visible areas Initial Vital Signs Initial Vital Signs: Vital Signs Temperature 98.8 F 05/23/24 04:50 Pulse Rate 107 H 05/23/24 04:50 Respiratory Rate 22 05/23/24 04:50 Blood Pressure 182/90 H 05/23/24 04:50 Pulse Oximetry 97 05/23/24 04:50 Oxygen Delivery Method Room Air 05/23/24 04:50 <Freedom Apodaca MD - Last Filed: 05/25/24 12:39> Initial Vital Signs Initial Vital Signs: Vital Signs Temperature 98.8 F 05/23/24 04:50 Pulse Rate 107 H 05/23/24 04:50 Respiratory Rate 22 05/23/24 04:50 Blood Pressure 182/90 H 05/23/24 04:50 Pulse Oximetry 97 05/23/24 04:50 Oxygen Delivery Method Room Air 05/23/24 04:50 <Everette Mclaughlin DO - Last Filed: 05/24/24 18:03> Initial Vital Signs Initial Vital Signs: Vital Signs Temperature 98.8 F 05/23/24 04:50 Pulse Rate 107 H 05/23/24 04:50 Respiratory Rate 22 05/23/24 04:50 Blood Pressure 182/90 H 05/23/24 04:50 Pulse Oximetry 97 05/23/24 04:50 Oxygen Delivery Method Room Air 05/23/24 04:50 Course <Jimbo Latham MD - Last Filed: 05/25/24 03:22> Orders Ordered: Discontinued Medications Acetaminophen (Acetaminophen 325 Mg Tablet) 975 mg PO Q6H PRN PRN Reason: Pain, Mild (1-3) Last Admin: 05/24/24 15:08 Dose: 975 mg Documented By: NYA Albuterol (Albuterol 2.5 Mg/3 Ml Neb (Adult)) 2.5 mg INH NOW ONE Stop: 05/23/24 06:35 Last Admin: 05/23/24 06:47 Dose: 2.5 mg Documented By: JOSEF Albuterol (Albuterol 2.5 Mg/3 Ml Neb (Adult)) 2.5 mg INH NOW ONE Stop: 05/23/24 06:43 Last Admin: 05/23/24 06:57 Dose: 2.5 mg Documented By: JOSEF Aspirin (Aspirin 81 Mg Chew Tab) 324 mg PO NOW ONE Stop: 05/23/24 05:01 Last Admin: 05/23/24 05:18 Dose: 324 mg Documented By: Heparin Sodium/Dextrose (Heparin Drip) 25,000 unit in 500 mls @ 30.372 mls/hr IV CONT LIA; Protocol Last Admin: 05/23/24 14:37 Dose: Not Given Documented By: RANDOLPH Heparin Sodium/Dextrose (Heparin Drip) 25,000 unit in 500 mls @ 19.995 mls/hr IV CONT LIA; Protocol Last Titration: 05/24/24 19:27 Dose: 0 units/kg/hr, 0 mls/hr Documented By: NYA Co-signed By: CHITO Admin: 05/24/24 15:28 Dose: 7.9 units/kg/hr, 19.995 mls/hr Documented By: NYA Co-signed By: RANDOLPH(2) Titration: 05/24/24 15:28 Dose: Infused Documented By: NYA Co-signed By: RANDOLPH(2) Admin: 05/23/24 14:14 Dose: 7.9 units/kg/hr, 19.995 mls/hr Documented By: RANDOLPH Co-signed By: [email or web address]) Sodium Chloride (Normal Saline 0.9%) 1,000 mls @ 100 mls/hr IV CONT LIA Last Infusion: 05/24/24 17:24 Dose: 0 mls/hr Documented By: Admin: 05/24/24 08:06 Dose: 100 mls/hr Documented By: Infusion: 05/24/24 05:00 Dose: Infused Documented By: Admin: 05/23/24 19:00 Dose: 100 mls/hr Documented By: RANDOLPH Magnesium Sulfate (Magnesium Sulfate) 2 gm in 50 mls @ 150 mls/hr IV NOW ONE Stop: 05/24/24 16:58 Last Infusion: 05/24/24 17:19 Dose: Infused Documented By: NYA Co-signed By: RANDOLPH(2) Admin: 05/24/24 16:44 Dose: 150 mls/hr Documented By: NYA Co-signed By: LAURA Sodium Chloride (Normal Saline 0.9%) 1,000 mls @ 1,000 mls/hr IV BOLUS ONE Stop: 05/24/24 18:23 Last Infusion: 05/24/24 18:12 Dose: Infused Documented By: Admin: 05/24/24 17:25 Dose: 1,000 mls/hr Documented By: NYA Diltiazem HCl 125 mg/ Sodium (Chloride) 125 mls @ 5 mls/hr IV TITRATE LIA; Protocol Last Titration: 05/24/24 19:26 Dose: 0 mg/hr, 0 mls/hr Documented By: Admin: 05/24/24 18:08 Dose: 5 mg/hr, 5 mls/hr Documented By: NYA Metoprolol Tartrate (Metoprolol Tartrate 5 Mg/5 Ml Inj) 5 mg IV NOW ONE Stop: 05/24/24 15:32 Last Admin: 05/24/24 15:35 Dose: 5 mg Documented By: NYA Metoprolol Tartrate (Metoprolol Tartrate 5 Mg/5 Ml Inj) 5 mg IV NOW ONE Stop: 05/24/24 16:40 Last Admin: 05/24/24 17:54 Dose: Not Given Documented By: NYA Morphine Sulfate (Morphine 4 Mg/Ml Inj) 4 mg IV NOW ONE Stop: 05/23/24 11:29 Last Admin: 05/23/24 11:41 Dose: Not Given Documented By: RANDOLPH Nitroglycerin (Nitroglycerin Oint 1 Inch/Gm Oint...G.) 1 inch TOP NOW ONE Stop: 05/23/24 12:14 Last Admin: 05/23/24 12:22 Dose: 1 inch Documented By: RANDOLPH Ondansetron HCl (Ondansetron 4 Mg/2 Ml Inj) 4 mg IV NOW ONE Stop: 05/23/24 11:29 Last Admin: 05/23/24 11:50 Dose: Not Given Documented By: RANDOLPH Pantoprazole Sodium (Pantoprazole 40 Mg Vial) 40 mg IV NOW ONE Stop: 05/23/24 10:26 Last Admin: 05/23/24 11:01 Dose: 40 mg Documented By: RANDOLPH Pantoprazole Sodium (Pantoprazole 40 Mg Vial) 40 mg IV NOW ONE Stop: 05/24/24 08:03 Last Admin: 05/24/24 08:06 Dose: 40 mg Documented By: ELIUD Promethazine HCl (Promethazine 25 Mg Tablet) 25 mg PO Q6HR PRN PRN Reason: Nausea Last Admin: 05/24/24 09:34 Dose: 25 mg Documented By: Admin: 05/23/24 22:25 Dose: 25 mg Documented By: RANDOLPH Vital Signs Vital signs: Vital Signs - 8 hr 05/24/24 11:00 05/24/24 11:00 05/24/24 11:30 Pulse Rate 87 87 Respiratory Rate 12 15 Blood Pressure 135/77 Pulse Oximetry 93 94 05/24/24 11:30 05/24/24 12:00 05/24/24 12:00 Pulse Rate 103 H Respiratory Rate 16 Blood Pressure 119/73 154/92 H Pulse Oximetry 96 05/24/24 12:30 05/24/24 12:30 05/24/24 13:06 Pulse Rate 96 H 112 H Respiratory Rate 14 Blood Pressure 119/73 Pulse Oximetry 95 97 05/24/24 13:30 05/24/24 14:00 05/24/24 14:01 Pulse Rate 94 H 101 H 103 H Respiratory Rate 20 20 22 Blood Pressure Pulse Oximetry 97 96 96 05/24/24 14:01 05/24/24 14:30 05/24/24 15:06 Pulse Rate 90 91 H Respiratory Rate 13 Blood Pressure 132/65 Pulse Oximetry 96 98 05/24/24 15:09 05/24/24 15:09 05/24/24 15:10 Pulse Rate 158 H 161 H Respiratory Rate 19 20 Blood Pressure 107/65 Pulse Oximetry 97 98 05/24/24 15:10 05/24/24 15:30 05/24/24 15:30 Pulse Rate 160 H Respiratory Rate 18 Blood Pressure 113/57 L 111/77 Pulse Oximetry 97 05/24/24 16:00 05/24/24 16:30 05/24/24 16:58 Pulse Rate 170 H 153 H 155 H Respiratory Rate 20 14 15 Blood Pressure Pulse Oximetry 93 93 96 05/24/24 16:58 05/24/24 17:00 05/24/24 17:00 Pulse Rate 154 H Respiratory Rate 22 Blood Pressure 122/79 112/74 Pulse Oximetry 95 05/24/24 18:08 Pulse Rate 136 H Respiratory Rate Blood Pressure 132/66 Pulse Oximetry <Freedom Apodaca MD - Last Filed: 05/25/24 12:39> Orders Ordered: Discontinued Medications Acetaminophen (Acetaminophen 325 Mg Tablet) 975 mg PO Q6H PRN PRN Reason: Pain, Mild (1-3) Last Admin: 05/24/24 15:08 Dose: 975 mg Documented By: NYA Albuterol (Albuterol 2.5 Mg/3 Ml Neb (Adult)) 2.5 mg INH NOW ONE Stop: 05/23/24 06:35 Last Admin: 05/23/24 06:47 Dose: 2.5 mg Documented By: JOSEF Albuterol (Albuterol 2.5 Mg/3 Ml Neb (Adult)) 2.5 mg INH NOW ONE Stop: 05/23/24 06:43 Last Admin: 05/23/24 06:57 Dose: 2.5 mg Documented By: JOSEF Aspirin (Aspirin 81 Mg Chew Tab) 324 mg PO NOW ONE Stop: 05/23/24 05:01 Last Admin: 05/23/24 05:18 Dose: 324 mg Documented By: Heparin Sodium/Dextrose (Heparin Drip) 25,000 unit in 500 mls @ 30.372 mls/hr IV CONT LIA; Protocol Last Admin: 05/23/24 14:37 Dose: Not Given Documented By: RANDOLPH Heparin Sodium/Dextrose (Heparin Drip) 25,000 unit in 500 mls @ 19.995 mls/hr IV CONT LIA; Protocol Last Titration: 05/24/24 19:27 Dose: 0 units/kg/hr, 0 mls/hr Documented By: NYA Co-signed By: CHITO Admin: 05/24/24 15:28 Dose: 7.9 units/kg/hr, 19.995 mls/hr Documented By: NYA Co-signed By: RANDOLPH(2) Titration: 05/24/24 15:28 Dose: Infused Documented By: NYA Co-signed By: RANDOLPH(2) Admin: 05/23/24 14:14 Dose: 7.9 units/kg/hr, 19.995 mls/hr Documented By: RANDOLPH Co-signed By: RANDOLPH(2) Sodium Chloride (Normal Saline 0.9%) 1,000 mls @ 100 mls/hr IV CONT LIA Last Infusion: 05/24/24 17:24 Dose: 0 mls/hr Documented By: Admin: 05/24/24 08:06 Dose: 100 mls/hr Documented By: Infusion: 05/24/24 05:00 Dose: Infused Documented By: Admin: 05/23/24 19:00 Dose: 100 mls/hr Documented By: RANDOLPH Magnesium Sulfate (Magnesium Sulfate) 2 gm in 50 mls @ 150 mls/hr IV NOW ONE Stop: 05/24/24 16:58 Last Infusion: 05/24/24 17:19 Dose: Infused Documented By: NYA Co-signed By: RANDOLPH(2) Admin: 05/24/24 16:44 Dose: 150 mls/hr Documented By: NYA Co-signed By: LAURA Sodium Chloride (Normal Saline 0.9%) 1,000 mls @ 1,000 mls/hr IV BOLUS ONE Stop: 05/24/24 18:23 Last Infusion: 05/24/24 18:12 Dose: Infused Documented By: Admin: 05/24/24 17:25 Dose: 1,000 mls/hr Documented By: NYA Diltiazem HCl 125 mg/ Sodium (Chloride) 125 mls @ 5 mls/hr IV TITRATE LIA; Protocol Last Titration: 05/24/24 19:26 Dose: 0 mg/hr, 0 mls/hr Documented By: Admin: 05/24/24 18:08 Dose: 5 mg/hr, 5 mls/hr Documented By: NYA Metoprolol Tartrate (Metoprolol Tartrate 5 Mg/5 Ml Inj) 5 mg IV NOW ONE Stop: 05/24/24 15:32 Last Admin: 05/24/24 15:35 Dose: 5 mg Documented By: NYA Metoprolol Tartrate (Metoprolol Tartrate 5 Mg/5 Ml Inj) 5 mg IV NOW ONE Stop: 05/24/24 16:40 Last Admin: 05/24/24 17:54 Dose: Not Given Documented By: NYA Morphine Sulfate (Morphine 4 Mg/Ml Inj) 4 mg IV NOW ONE Stop: 05/23/24 11:29 Last Admin: 05/23/24 11:41 Dose: Not Given Documented By: RANDOLPH Nitroglycerin (Nitroglycerin Oint 1 Inch/Gm Oint...G.) 1 inch TOP NOW ONE Stop: 05/23/24 12:14 Last Admin: 05/23/24 12:22 Dose: 1 inch Documented By: RANDOLPH Ondansetron HCl (Ondansetron 4 Mg/2 Ml Inj) 4 mg IV NOW ONE Stop: 05/23/24 11:29 Last Admin: 05/23/24 11:50 Dose: Not Given Documented By: RANDOLPH Pantoprazole Sodium (Pantoprazole 40 Mg Vial) 40 mg IV NOW ONE Stop: 05/23/24 10:26 Last Admin: 05/23/24 11:01 Dose: 40 mg Documented By: RANDOLPH Pantoprazole Sodium (Pantoprazole 40 Mg Vial) 40 mg IV NOW ONE Stop: 05/24/24 08:03 Last Admin: 05/24/24 08:06 Dose: 40 mg Documented By: ELIUD Promethazine HCl (Promethazine 25 Mg Tablet) 25 mg PO Q6HR PRN PRN Reason: Nausea Last Admin: 05/24/24 09:34 Dose: 25 mg Documented By: Admin: 05/23/24 22:25 Dose: 25 mg Documented By: RANDOLPH Vital Signs Vital signs: Vital Signs - 8 hr 05/24/24 11:00 05/24/24 11:00 05/24/24 11:30 Pulse Rate 87 87 Respiratory Rate 12 15 Blood Pressure 135/77 Pulse Oximetry 93 94 05/24/24 11:30 05/24/24 12:00 05/24/24 12:00 Pulse Rate 103 H Respiratory Rate 16 Blood Pressure 119/73 154/92 H Pulse Oximetry 96 05/24/24 12:30 05/24/24 12:30 05/24/24 13:06 Pulse Rate 96 H 112 H Respiratory Rate 14 Blood Pressure 119/73 Pulse Oximetry 95 97 05/24/24 13:30 05/24/24 14:00 05/24/24 14:01 Pulse Rate 94 H 101 H 103 H Respiratory Rate 20 20 22 Blood Pressure Pulse Oximetry 97 96 96 05/24/24 14:01 05/24/24 14:30 05/24/24 15:06 Pulse Rate 90 91 H Respiratory Rate 13 Blood Pressure 132/65 Pulse Oximetry 96 98 05/24/24 15:09 05/24/24 15:09 05/24/24 15:10 Pulse Rate 158 H 161 H Respiratory Rate 19 20 Blood Pressure 107/65 Pulse Oximetry 97 98 05/24/24 15:10 05/24/24 15:30 05/24/24 15:30 Pulse Rate 160 H Respiratory Rate 18 Blood Pressure 113/57 L 111/77 Pulse Oximetry 97 05/24/24 16:00 05/24/24 16:30 05/24/24 16:58 Pulse Rate 170 H 153 H 155 H Respiratory Rate 20 14 15 Blood Pressure Pulse Oximetry 93 93 96 05/24/24 16:58 05/24/24 17:00 05/24/24 17:00 Pulse Rate 154 H Respiratory Rate 22 Blood Pressure 122/79 112/74 Pulse Oximetry 95 05/24/24 18:08 Pulse Rate 136 H Respiratory Rate Blood Pressure 132/66 Pulse Oximetry <Everette Mclaughlin, DO - Last Filed: 05/24/24 18:03> Orders Ordered: Discontinued Medications Acetaminophen (Acetaminophen 325 Mg Tablet) 975 mg PO Q6H PRN PRN Reason: Pain, Mild (1-3) Last Admin: 05/24/24 15:08 Dose: 975 mg Documented By: NYA Albuterol (Albuterol 2.5 Mg/3 Ml Neb (Adult)) 2.5 mg INH NOW ONE Stop: 05/23/24 06:35 Last Admin: 05/23/24 06:47 Dose: 2.5 mg Documented By: JOSEF Albuterol (Albuterol 2.5 Mg/3 Ml Neb (Adult)) 2.5 mg INH NOW ONE Stop: 05/23/24 06:43 Last Admin: 05/23/24 06:57 Dose: 2.5 mg Documented By: JOSEF Aspirin (Aspirin 81 Mg Chew Tab) 324 mg PO NOW ONE Stop: 05/23/24 05:01 Last Admin: 05/23/24 05:18 Dose: 324 mg Documented By: Heparin Sodium/Dextrose (Heparin Drip) 25,000 unit in 500 mls @ 30.372 mls/hr IV CONT LIA; Protocol Last Admin: 05/23/24 14:37 Dose: Not Given Documented By: RANDOLPH Heparin Sodium/Dextrose (Heparin Drip) 25,000 unit in 500 mls @ 19.995 mls/hr IV CONT LIA; Protocol Last Titration: 05/24/24 19:27 Dose: 0 units/kg/hr, 0 mls/hr Documented By: NYA Co-signed By: CHITO Admin: 05/24/24 15:28 Dose: 7.9 units/kg/hr, 19.995 mls/hr Documented By: NYA Co-signed By: RANDOLPH(2) Titration: 05/24/24 15:28 Dose: Infused Documented By: NYA Co-signed By: RANDOLPH(2) Admin: 05/23/24 14:14 Dose: 7.9 units/kg/hr, 19.995 mls/hr Documented By: RANDOLPH Co-signed By: RANDOLPH(2) Sodium Chloride (Normal Saline 0.9%) 1,000 mls @ 100 mls/hr IV CONT LIA Last Infusion: 05/24/24 17:24 Dose: 0 mls/hr Documented By: Admin: 05/24/24 08:06 Dose: 100 mls/hr Documented By: Infusion: 05/24/24 05:00 Dose: Infused Documented By: Admin: 05/23/24 19:00 Dose: 100 mls/hr Documented By: RANDOLPH Magnesium Sulfate (Magnesium Sulfate) 2 gm in 50 mls @ 150 mls/hr IV NOW ONE Stop: 05/24/24 16:58 Last Infusion: 05/24/24 17:19 Dose: Infused Documented By: NYA Co-signed By: RANDOLPH(2) Admin: 05/24/24 16:44 Dose: 150 mls/hr Documented By: NYA Co-signed By: LAURA Sodium Chloride (Normal Saline 0.9%) 1,000 mls @ 1,000 mls/hr IV BOLUS ONE Stop: 05/24/24 18:23 Last Infusion: 05/24/24 18:12 Dose: Infused Documented By: Admin: 05/24/24 17:25 Dose: 1,000 mls/hr Documented By: NYA Diltiazem HCl 125 mg/ Sodium (Chloride) 125 mls @ 5 mls/hr IV TITRATE LIA; Protocol Last Titration: 05/24/24 19:26 Dose: 0 mg/hr, 0 mls/hr Documented By: Admin: 05/24/24 18:08 Dose: 5 mg/hr, 5 mls/hr Documented By: NYA Metoprolol Tartrate (Metoprolol Tartrate 5 Mg/5 Ml Inj) 5 mg IV NOW ONE Stop: 05/24/24 15:32 Last Admin: 05/24/24 15:35 Dose: 5 mg Documented By: NYA Metoprolol Tartrate (Metoprolol Tartrate 5 Mg/5 Ml Inj) 5 mg IV NOW ONE Stop: 05/24/24 16:40 Last Admin: 05/24/24 17:54 Dose: Not Given Documented By: NYA Morphine Sulfate (Morphine 4 Mg/Ml Inj) 4 mg IV NOW ONE Stop: 05/23/24 11:29 Last Admin: 05/23/24 11:41 Dose: Not Given Documented By: RANDOLPH Nitroglycerin (Nitroglycerin Oint 1 Inch/Gm Oint...G.) 1 inch TOP NOW ONE Stop: 05/23/24 12:14 Last Admin: 05/23/24 12:22 Dose: 1 inch Documented By: RANDOLPH Ondansetron HCl (Ondansetron 4 Mg/2 Ml Inj) 4 mg IV NOW ONE Stop: 05/23/24 11:29 Last Admin: 05/23/24 11:50 Dose: Not Given Documented By: RANDOLPH Pantoprazole Sodium (Pantoprazole 40 Mg Vial) 40 mg IV NOW ONE Stop: 05/23/24 10:26 Last Admin: 05/23/24 11:01 Dose: 40 mg Documented By: RANDOLPH Pantoprazole Sodium (Pantoprazole 40 Mg Vial) 40 mg IV NOW ONE Stop: 05/24/24 08:03 Last Admin: 05/24/24 08:06 Dose: 40 mg Documented By: ELIUD Promethazine HCl (Promethazine 25 Mg Tablet) 25 mg PO Q6HR PRN PRN Reason: Nausea Last Admin: 05/24/24 09:34 Dose: 25 mg Documented By: Admin: 05/23/24 22:25 Dose: 25 mg Documented By: RANDOLPH Vital Signs Vital signs: Vital Signs - 8 hr 05/24/24 11:00 05/24/24 11:00 05/24/24 11:30 Pulse Rate 87 87 Respiratory Rate 12 15 Blood Pressure 135/77 Pulse Oximetry 93 94 05/24/24 11:30 05/24/24 12:00 05/24/24 12:00 Pulse Rate 103 H Respiratory Rate 16 Blood Pressure 119/73 154/92 H Pulse Oximetry 96 05/24/24 12:30 05/24/24 12:30 05/24/24 13:06 Pulse Rate 96 H 112 H Respiratory Rate 14 Blood Pressure 119/73 Pulse Oximetry 95 97 05/24/24 13:30 05/24/24 14:00 05/24/24 14:01 Pulse Rate 94 H 101 H 103 H Respiratory Rate 20 20 22 Blood Pressure Pulse Oximetry 97 96 96 05/24/24 14:01 05/24/24 14:30 05/24/24 15:06 Pulse Rate 90 91 H Respiratory Rate 13 Blood Pressure 132/65 Pulse Oximetry 96 98 05/24/24 15:09 05/24/24 15:09 05/24/24 15:10 Pulse Rate 158 H 161 H Respiratory Rate 19 20 Blood Pressure 107/65 Pulse Oximetry 97 98 05/24/24 15:10 05/24/24 15:30 05/24/24 15:30 Pulse Rate 160 H Respiratory Rate 18 Blood Pressure 113/57 L 111/77 Pulse Oximetry 97 05/24/24 16:00 05/24/24 16:30 05/24/24 16:58 Pulse Rate 170 H 153 H 155 H Respiratory Rate 20 14 15 Blood Pressure Pulse Oximetry 93 93 96 05/24/24 16:58 05/24/24 17:00 05/24/24 17:00 Pulse Rate 154 H Respiratory Rate 22 Blood Pressure 122/79 112/74 Pulse Oximetry 95 05/24/24 18:08 Pulse Rate 136 H Respiratory Rate Blood Pressure 132/66 Pulse Oximetry MDM - Chest Pain <Jimbo Latham MD - Last Filed: 05/25/24 03:22> Lab Data Attestation: I reviewed the patient's lab results. Lab results narrative: White blood cell count 6600, hemoglobin 13.2, platelets adequate. Glucose 199. BUN 19 with creatinine 0.77. Electrolytes unremarkable. Liver functions and lipase negative. Troponin negative. 05/24/24 02:08 05/24/24 03:02 Labs: Lab Results 05/23/24 05/23/24 05/23/24 Range/Units 05:08 07:26 20:07 WBC 6.6 (4.5-11.0) X10^3/uL RBC 4.58 (4.0-5.2) X10^6/uL Hgb 13.2 (12.0-16.0) g/dL Hct 39.7 (36-46) % MCV 86.6 (80-100) fL MCH 28.8 (26-34) PG MCHC 33.3 (30-36) % RDW 14.6 (11.6-14.8) % Plt Count 286 (150-400) X10^3/uL Neut % (Auto) 71.7 (50-75) % Lymph % (Auto) 19.1 L (25-40) % Harding % (Auto) 6.7 (3-14) % Eos % (Auto) 1.8 L (2-4) % Baso % (Auto) 0.7 (0-2) % Neut # (Auto) 4800 (0583-9158) /uL Lymph # (Auto) 1300 (9589-5566) /uL Harding # (Auto) 400 (0-900) /uL Eos # (Auto) 100 (0-450) /uL Baso # (Auto) 0 (0-100) /uL PT 11.2 (9.4-12.5) SECONDS INR 1.0 (0.9-1.3) APTT 38 H 50 H D (25.1-36.5) SECONDS Sodium 138 (137-145) mmol/L Potassium 4.2 (3.4-5.1) mmol/L Chloride 104 (98-107) mmol/L Carbon Dioxide 27 (22-32) mmol/L BUN 19 H (7-17) mg/dL Creatinine 0.77 (0.52-1.04) mg/dL Estimated GFR > 60 (>60) mL/min BUN/Creatinine Ratio 24.7 H (6-22) Glucose 199 H (80-110) mg/dL Calcium 9.7 (8.4-10.2) mg/dL Magnesium 1.8 (1.6-2.3) mg/dL Total Bilirubin 0.9 (0.2-1.3) mg/dL AST 22 (14-36) IU/L ALT 20 (<35) IU/L Alkaline Phosphatase 87 (38-126) U/L Total Creatine Kinase 47 (30-135) U/L Troponin I < 0.012 < 0.012 (0.01-0.034) ng/mL NT-Pro-B Natriuret Pep 75 (<125) pg/mL Total Protein 7.1 (6.3-8.2) g/dL Albumin 4.2 (3.5-5.0) g/dL Globulin 2.9 (1.7-4.1) g/dL Albumin/Globulin Ratio 1.4 (1.0-2.8) Lipase 158 (23-300) U/L 05/24/24 05/24/24 05/24/24 Range/Units 01:51 02:08 03:02 WBC 6.3 (4.5-11.0) X10^3/uL RBC 4.61 (4.0-5.2) X10^6/uL Hgb 13.1 (12.0-16.0) g/dL Hct 40.1 (36-46) % MCV 87.0 (80-100) fL MCH 28.5 (26-34) PG MCHC 32.8 (30-36) % RDW 14.7 (11.6-14.8) % Plt Count 238 (150-400) X10^3/uL Neut % (Auto) 81.6 H (50-75) % Lymph % (Auto) 13.2 L (25-40) % Harding % (Auto) 3.5 (3-14) % Eos % (Auto) 1.0 L (2-4) % Baso % (Auto) 0.7 (0-2) % Neut # (Auto) 5200 (4961-7393) /uL Lymph # (Auto) 800 L (6928-4422) /uL Harding # (Auto) 200 (0-900) /uL Eos # (Auto) 100 (0-450) /uL Baso # (Auto) 0 (0-100) /uL PT (9.4-12.5) SECONDS INR (0.9-1.3) APTT 53 H (25.1-36.5) SECONDS Sodium 138 (137-145) mmol/L Potassium 4.0 (3.4-5.1) mmol/L Chloride 106 (98-107) mmol/L Carbon Dioxide 27 (22-32) mmol/L BUN 10 (7-17) mg/dL Creatinine 0.60 (0.52-1.04) mg/dL Estimated GFR > 60 (>60) mL/min BUN/Creatinine Ratio 16.7 (6-22) Glucose 215 H (80-110) mg/dL Calcium 8.9 (8.4-10.2) mg/dL Magnesium (1.6-2.3) mg/dL Total Bilirubin 1.1 (0.2-1.3) mg/dL AST 22 (14-36) IU/L ALT 18 (<35) IU/L Alkaline Phosphatase 68 (38-126) U/L Total Creatine Kinase (30-135) U/L Troponin I (0.01-0.034) ng/mL NT-Pro-B Natriuret Pep (<125) pg/mL Total Protein 6.4 (6.3-8.2) g/dL Albumin 3.7 (3.5-5.0) g/dL Globulin 2.7 (1.7-4.1) g/dL Albumin/Globulin Ratio 1.4 (1.0-2.8) Lipase (23-300) U/L 05/24/24 05/24/24 Range/Units 08:30 14:14 WBC (4.5-11.0) X10^3/uL RBC (4.0-5.2) X10^6/uL Hgb (12.0-16.0) g/dL Hct (36-46) % MCV (80-100) fL MCH (26-34) PG MCHC (30-36) % RDW (11.6-14.8) % Plt Count (150-400) X10^3/uL Neut % (Auto) (50-75) % Lymph % (Auto) (25-40) % Harding % (Auto) (3-14) % Eos % (Auto) (2-4) % Baso % (Auto) (0-2) % Neut # (Auto) (9986-2503) /uL Lymph # (Auto) (5596-9516) /uL Harding # (Auto) (0-900) /uL Eos # (Auto) (0-450) /uL Baso # (Auto) (0-100) /uL PT (9.4-12.5) SECONDS INR (0.9-1.3) APTT 52 H 57 H (25.1-36.5) SECONDS Sodium (137-145) mmol/L Potassium (3.4-5.1) mmol/L Chloride (98-107) mmol/L Carbon Dioxide (22-32) mmol/L BUN (7-17) mg/dL Creatinine (0.52-1.04) mg/dL Estimated GFR (>60) mL/min BUN/Creatinine Ratio (6-22) Glucose (80-110) mg/dL Calcium (8.4-10.2) mg/dL Magnesium (1.6-2.3) mg/dL Total Bilirubin (0.2-1.3) mg/dL AST (14-36) IU/L ALT (<35) IU/L Alkaline Phosphatase (38-126) U/L Total Creatine Kinase (30-135) U/L Troponin I (0.01-0.034) ng/mL NT-Pro-B Natriuret Pep (<125) pg/mL Total Protein (6.3-8.2) g/dL Albumin (3.5-5.0) g/dL Globulin (1.7-4.1) g/dL Albumin/Globulin Ratio (1.0-2.8) Lipase (23-300) U/L Point of Care Testing Glucose POC 183 ECG Data Attestation: I personally reviewed and interpreted this ECG as follows: Interpretation: Normal sinus rhythm with rate of 89, no obvious ST segment elevation or depression changes. [place] 132, QRS 86, QTC 467. MDM Narrative Medical decision making narrative: 69-year-old female with lower chest upper epigastric discomfort, recent upper respiratory infections, treated with course of oral Augmentin antibiotic for sinus infection and ear infection, still coughing, using inhaler, requests breathing treatment. No oxygen requirement. No reproducibility epigastrium or chest for her discomfort. EKG without ischemic changes. Troponin negative. Repeat EKG at 10:15 a.m.. Sinus rhythm rate [address] elevation or depression Chest x-ray single view. No acute findings. See tele radiology report. CT chest abdomen pelvis, coronary artery calcification seen. Otherwise no acute finding 0700, Interval troponin pending, signed out to Dr Apodaca. troponin less than 0.012 x 2 May 23, 2024 at 7:[address] Apodaca: Sign out from Dr. Latham, patient here for non reproducible epigastric chest pain radiating to the back. Second troponin results are pending. 7:[address] Apodaca: Spoke with patient. She states she has been wearing last couple of minutes have had any exertional shortness breath and off and on chest discomfort and epigastric discomfort. She states she does have history of gastritis and gastroparesis but this feels different. She has had upper respiratory symptoms for the past days but it does not reproduce her symptoms. She has medical care with [facility] and she understands we will need to call them for authorization for admission or transfer. At this time we do not beds here and may need to transfer to another outlying hospital, she understands. Patient does have mild epigastric tenderness. No chest pain at this time. 8:19 a.m.. Spoke with [facility] insurance, Dr. Akers, he approves for patient to be admitted or transferred. 1:49 p.m.. Spoke with [facility], dr sommer, who will follow up patient in consult. Recommends heparin started now. Would recommend having echo at their facility and heart catheterization. 6:[address] Apodaca: Sign out back to Dr. Latham, patient results has been reviewed with [facility], who feels patient will need heart catheterization. He had a heparin has been started. Awaiting for call back from hospitalist and bed availability. Patient is aware need for transfer. 05/23/24, 1900, [place]. Sign-out from Dr. Apodaca, patient familiar to me from initial sign-out, at which time 2nd troponin was pending. Troponin negative. Patient on IV heparin for presumed ACS cause of her chest/epigastric area discomfort, accepted for transfer to [facility] in anticipation of cardiac catheterization, awaiting bed availability. Assumed interim care. 0700, still awaiting transfer, on heparin, signed out to oncoming ED shift physician Dr Mclaughlin <Freedom Apodaca MD - Last Filed: 05/25/24 12:39> Lab Data Labs: Lab Results 05/23/24 05/23/24 05/23/24 Range/Units 05:08 07:26 20:07 WBC 6.6 (4.5-11.0) X10^3/uL RBC 4.58 (4.0-5.2) X10^6/uL Hgb 13.2 (12.0-16.0) g/dL Hct 39.7 (36-46) % MCV 86.6 (80-100) fL MCH 28.8 (26-34) PG MCHC 33.3 (30-36) % RDW 14.6 (11.6-14.8) % Plt Count 286 (150-400) X10^3/uL Neut % (Auto) 71.7 (50-75) % Lymph % (Auto) 19.1 L (25-40) % Harding % (Auto) 6.7 (3-14) % Eos % (Auto) 1.8 L (2-4) % Baso % (Auto) 0.7 (0-2) % Neut # (Auto) 4800 (8760-0322) /uL Lymph # (Auto) 1300 (2107-3683) /uL Harding # (Auto) 400 (0-900) /uL Eos # (Auto) 100 (0-450) /uL Baso # (Auto) 0 (0-100) /uL PT 11.2 (9.4-12.5) SECONDS INR 1.0 (0.9-1.3) APTT 38 H 50 H D (25.1-36.5) SECONDS Sodium 138 (137-145) mmol/L Potassium 4.2 (3.4-5.1) mmol/L Chloride 104 (98-107) mmol/L Carbon Dioxide 27 (22-32) mmol/L BUN 19 H (7-17) mg/dL Creatinine 0.77 (0.52-1.04) mg/dL Estimated GFR > 60 (>60) mL/min BUN/Creatinine Ratio 24.7 H (6-22) Glucose 199 H (80-110) mg/dL Calcium 9.7 (8.4-10.2) mg/dL Magnesium 1.8 (1.6-2.3) mg/dL Total Bilirubin 0.9 (0.2-1.3) mg/dL AST 22 (14-36) IU/L ALT 20 (<35) IU/L Alkaline Phosphatase 87 (38-126) U/L Total Creatine Kinase 47 (30-135) U/L Troponin I < 0.012 < 0.012 (0.01-0.034) ng/mL NT-Pro-B Natriuret Pep 75 (<125) pg/mL Total Protein 7.1 (6.3-8.2) g/dL Albumin 4.2 (3.5-5.0) g/dL Globulin 2.9 (1.7-4.1) g/dL Albumin/Globulin Ratio 1.4 (1.0-2.8) Lipase 158 (23-300) U/L 05/24/24 05/24/24 05/24/24 Range/Units 01:51 02:08 03:02 WBC 6.3 (4.5-11.0) X10^3/uL RBC 4.61 (4.0-5.2) X10^6/uL Hgb 13.1 (12.0-16.0) g/dL Hct 40.1 (36-46) % MCV 87.0 (80-100) fL MCH 28.5 (26-34) PG MCHC 32.8 (30-36) % RDW 14.7 (11.6-14.8) % Plt Count 238 (150-400) X10^3/uL Neut % (Auto) 81.6 H (50-75) % Lymph % (Auto) 13.2 L (25-40) % Harding % (Auto) 3.5 (3-14) % Eos % (Auto) 1.0 L (2-4) % Baso % (Auto) 0.7 (0-2) % Neut # (Auto) 5200 (3564-4234) /uL Lymph # (Auto) 800 L (9451-7868) /uL Harding # (Auto) 200 (0-900) /uL Eos # (Auto) 100 (0-450) /uL Baso # (Auto) 0 (0-100) /uL PT (9.4-12.5) SECONDS INR (0.9-1.3) APTT 53 H (25.1-36.5) SECONDS Sodium 138 (137-145) mmol/L Potassium 4.0 (3.4-5.1) mmol/L Chloride 106 (98-107) mmol/L Carbon Dioxide 27 (22-32) mmol/L BUN 10 (7-17) mg/dL Creatinine 0.60 (0.52-1.04) mg/dL Estimated GFR > 60 (>60) mL/min BUN/Creatinine Ratio 16.7 (6-22) Glucose 215 H (80-110) mg/dL Calcium 8.9 (8.4-10.2) mg/dL Magnesium (1.6-2.3) mg/dL Total Bilirubin 1.1 (0.2-1.3) mg/dL AST 22 (14-36) IU/L ALT 18 (<35) IU/L Alkaline Phosphatase 68 (38-126) U/L Total Creatine Kinase (30-135) U/L Troponin I (0.01-0.034) ng/mL NT-Pro-B Natriuret Pep (<125) pg/mL Total Protein 6.4 (6.3-8.2) g/dL Albumin 3.7 (3.5-5.0) g/dL Globulin 2.7 (1.7-4.1) g/dL Albumin/Globulin Ratio 1.4 (1.0-2.8) Lipase (23-300) U/L 05/24/24 05/24/24 Range/Units 08:30 14:14 WBC (4.5-11.0) X10^3/uL RBC (4.0-5.2) X10^6/uL Hgb (12.0-16.0) g/dL Hct (36-46) % MCV (80-100) fL MCH (26-34) PG MCHC (30-36) % RDW (11.6-14.8) % Plt Count (150-400) X10^3/uL Neut % (Auto) (50-75) % Lymph % (Auto) (25-40) % Harding % (Auto) (3-14) % Eos % (Auto) (2-4) % Baso % (Auto) (0-2) % Neut # (Auto) (0159-4539) /uL Lymph # (Auto) (0369-6196) /uL Harding # (Auto) (0-900) /uL Eos # (Auto) (0-450) /uL Baso # (Auto) (0-100) /uL PT (9.4-12.5) SECONDS INR (0.9-1.3) APTT 52 H 57 H (25.1-36.5) SECONDS Sodium (137-145) mmol/L Potassium (3.4-5.1) mmol/L Chloride (98-107) mmol/L Carbon Dioxide (22-32) mmol/L BUN (7-17) mg/dL Creatinine (0.52-1.04) mg/dL Estimated GFR (>60) mL/min BUN/Creatinine Ratio (6-22) Glucose (80-110) mg/dL Calcium (8.4-10.2) mg/dL Magnesium (1.6-2.3) mg/dL Total Bilirubin (0.2-1.3) mg/dL AST (14-36) IU/L ALT (<35) IU/L Alkaline Phosphatase (38-126) U/L Total Creatine Kinase (30-135) U/L Troponin I (0.01-0.034) ng/mL NT-Pro-B Natriuret Pep (<125) pg/mL Total Protein (6.3-8.2) g/dL Albumin (3.5-5.0) g/dL Globulin (1.7-4.1) g/dL Albumin/Globulin Ratio (1.0-2.8) Lipase (23-300) U/L Point of Care Testing Glucose POC [address] chest abdomen and pelvis: Radiologist's Impression: [place] [address] CT Scan Report Signed Patient: Rosie Dale MR#: [id number] : 1955 Acct:[id number] Age/Sex: 69 / F Date of Service: 05/23/24 Loc: ED Accession Number: [id number] Procedure: CT chest abd pel wo con Ordering Provider: Freedom Apodaca MD PROCEDURE: CT CHEST ABD PEL WO CON INDICATIONS: /Chest pain/abdominal pain TECHNIQUE: After the administration of oral contrast, 5 mm thick sections acquired from the lung apices to the symphysis pubis. 5 mm thick coronal and sagittal reformats acquired, with additional 7 mm coronal MIP reformats through the lungs. For radiation dose reduction, the following was used: automated exposure control, adjustment of mA and/or kV according to patient size. COMPARISON: None. FINDINGS: Image quality: Diagnostic. CHEST: Lower Neck: No enlarged lymph nodes. Thyroid: No thyroid nodules which require sonographic follow up, per consensus guidelines. Axillae: No enlarged lymph nodes. Chest Wall: Unremarkable. Bones: Unremarkable. Lungs and Pleura: No pneumothorax or pleural effusions. Multiple tiny 2 mm pulmonary nodules, too small to characterize, likely benign. Incidental pneumatocele, left lower lobe, image 254 of series 3. Heart: Heart size is normal. Dense LAD calcifications. No pericardial effusion. Thoracic Vessels: The aorta and pulmonary arteries demonstrate normal size. Mediastinum and Aleshia: No enlarged lymph nodes. Esophagus: No wall thickening. Small hiatal hernia. ABDOMEN: Liver: No solid mass. Gallbladder: Absent Biliary ducts: No biliary dilation. Pancreas: No ductal dilation. Spleen: Size is within normal limits. Adrenal Glands: No adrenal nodules. Kidneys and Ureters: No hydronephrosis. No solid mass. No complex renal cystic lesion which requires follow up. Stomach and Bowel: Normal colonic caliber, without significant wall thickening. Sigmoid diverticulosis. No acute diverticulitis identified. Peritoneum: No abnormal intraperitoneal fluid. No free air. Ventral Wall: No hernia. Abdominal Nodes: No retroperitoneal or mesenteric adenopathy by size criteria. Vessels: Aorta and inferior vena cava are normal in size. PELVIS: Pelvic Organs: Uterus is surgically absent. No adnexal masses. Bladder: No abnormal wall thickening allowing for underdistention. Pelvic Nodes: No enlarged lymph nodes. Miscellaneous: No inguinal hernias are seen. Bones: No aggressive osseous abnormality. IMPRESSION: 1. No evidence acute process in the chest, abdomen, and pelvis. 2. Note made of dense LAD coronary artery calcifications. 3. Small hiatal hernia. 4. Diverticulosis. 5. Remote cholecystectomy and hysterectomy. Dictated by: Sukhdeep Brand M.D. on 05/23/2024 at 8:15 Approved by: Sukhdeep Brand M.D. on 05/23/2024 at 8:21 [facility] Narrative Medical decision making narrative: 69-year-old female with lower chest upper epigastric discomfort, recent upper respiratory infections, treated with course of oral Augmentin antibiotic for sinus infection and ear infection, still coughing, using inhaler, requests breathing treatment. No oxygen requirement. No reproducibility epigastrium or chest for her discomfort. EKG without ischemic changes. Troponin negative. Repeat EKG at 10:15 a.m.. Sinus rhythm rate [address] elevation or depression Chest x-ray single view. No acute findings. See tele radiology report. CT chest abdomen pelvis, coronary artery calcification seen. Otherwise no acute finding 0700, Interval troponin pending, signed out to Dr Apodaca. troponin less than 0.012 x 2 May 23, 2024 at 7:[address] Apodaca: Sign out from Dr. Latham, patient here for non reproducible epigastric chest pain radiating to the back. Second troponin results are pending. 7:[address] Apodaca: Spoke with patient. She states she has been wearing last couple of minutes have had any exertional shortness breath and off and on chest discomfort and epigastric discomfort. She states she does have history of gastritis and gastroparesis but this feels different. She has had upper respiratory symptoms for the past days but it does not reproduce her symptoms. She has medical care with [facility] and she understands we will need to call them for authorization for admission or transfer. At this time we do not beds here and may need to transfer to another outlying hospital, she understands. Patient does have mild epigastric tenderness. No chest pain at this time. 8:19 a.m.. Spoke with [facility] insurance, Dr. Akers, he approves for patient to be admitted or transferred. 1:49 p.m.. Spoke with [facility], dr sommer, who will follow up patient in consult. Recommends heparin started now. Would recommend having echo at their facility and heart catheterization. 6:[address] Apodaca: Sign out back to Dr. Latham, patient results has been reviewed with [facility], who feels patient will need heart catheterization. He had a heparin has been started. Awaiting for call back from hospitalist and bed availability. Patient is aware need for transfer. <Everette Mclaughlin, DO - Last Filed: 05/24/24 18:03> Lab Data Labs: Lab Results 05/23/24 05/23/24 05/23/24 Range/Units 05:08 07:26 20:07 WBC 6.6 (4.5-11.0) X10^3/uL RBC 4.58 (4.0-5.2) X10^6/uL Hgb 13.2 (12.0-16.0) g/dL Hct 39.7 (36-46) % MCV 86.6 (80-100) fL MCH 28.8 (26-34) PG MCHC 33.3 (30-36) % RDW 14.6 (11.6-14.8) % Plt Count 286 (150-400) X10^3/uL Neut % (Auto) 71.7 (50-75) % Lymph % (Auto) 19.1 L (25-40) % Harding % (Auto) 6.7 (3-14) % Eos % (Auto) 1.8 L (2-4) % Baso % (Auto) 0.7 (0-2) % Neut # (Auto) 4800 (8879-5236) /uL Lymph # (Auto) 1300 (1751-0986) /uL Harding # (Auto) 400 (0-900) /uL Eos # (Auto) 100 (0-450) /uL Baso # (Auto) 0 (0-100) /uL PT 11.2 (9.4-12.5) SECONDS INR 1.0 (0.9-1.3) APTT 38 H 50 H D (25.1-36.5) SECONDS Sodium 138 (137-145) mmol/L Potassium 4.2 (3.4-5.1) mmol/L Chloride 104 (98-107) mmol/L Carbon Dioxide 27 (22-32) mmol/L BUN 19 H (7-17) mg/dL Creatinine 0.77 (0.52-1.04) mg/dL Estimated GFR > 60 (>60) mL/min BUN/Creatinine Ratio 24.7 H (6-22) Glucose 199 H (80-110) mg/dL Calcium 9.7 (8.4-10.2) mg/dL Magnesium 1.8 (1.6-2.3) mg/dL Total Bilirubin 0.9 (0.2-1.3) mg/dL AST 22 (14-36) IU/L ALT 20 (<35) IU/L Alkaline Phosphatase 87 (38-126) U/L Total Creatine Kinase 47 (30-135) U/L Troponin I < 0.012 < 0.012 (0.01-0.034) ng/mL NT-Pro-B Natriuret Pep 75 (<125) pg/mL Total Protein 7.1 (6.3-8.2) g/dL Albumin 4.2 (3.5-5.0) g/dL Globulin 2.9 (1.7-4.1) g/dL Albumin/Globulin Ratio 1.4 (1.0-2.8) Lipase 158 (23-300) U/L 0205/24/24 05/24/24 Range/Units 01:51 02:08 03:02 WBC 6.3 (4.5-11.0) X10^3/uL RBC 4.61 (4.0-5.2) X10^6/uL Hgb 13.1 (12.0-16.0) g/dL Hct 40.1 (36-46) % MCV 87.0 (80-100) fL MCH 28.5 (26-34) PG MCHC 32.8 (30-36) % RDW 14.7 (11.6-14.8) % Plt Count 238 (150-400) X10^3/uL Neut % (Auto) 81.6 H (50-75) % Lymph % (Auto) 13.2 L (25-40) % Harding % (Auto) 3.5 (3-14) % Eos % (Auto) 1.0 L (2-4) % Baso % (Auto) 0.7 (0-2) % Neut # (Auto) 5200 (2953-4881) /uL Lymph # (Auto) 800 L (6692-8684) /uL Harding # (Auto) 200 (0-900) /uL Eos # (Auto) 100 (0-450) /uL Baso # (Auto) 0 (0-100) /uL PT (9.4-12.5) SECONDS INR (0.9-1.3) APTT 53 H (25.1-36.5) SECONDS Sodium 138 (137-145) mmol/L Potassium 4.0 (3.4-5.1) mmol/L Chloride 106 (98-107) mmol/L Carbon Dioxide 27 (22-32) mmol/L BUN 10 (7-17) mg/dL Creatinine 0.60 (0.52-1.04) mg/dL Estimated GFR > 60 (>60) mL/min BUN/Creatinine Ratio 16.7 (6-22) Glucose 215 H (80-110) mg/dL Calcium 8.9 (8.4-10.2) mg/dL Magnesium (1.6-2.3) mg/dL Total Bilirubin 1.1 (0.2-1.3) mg/dL AST 22 (14-36) IU/L ALT 18 (<35) IU/L Alkaline Phosphatase 68 (38-126) U/L Total Creatine Kinase (30-135) U/L Troponin I (0.01-0.034) ng/mL NT-Pro-B Natriuret Pep (<125) pg/mL Total Protein 6.4 (6.3-8.2) g/dL Albumin 3.7 (3.5-5.0) g/dL Globulin 2.7 (1.7-4.1) g/dL Albumin/Globulin Ratio 1.4 (1.0-2.8) Lipase (23-300) U/L 05/24/24 05/24/24 Range/Units 08:30 14:14 WBC (4.5-11.0) X10^3/uL RBC (4.0-5.2) X10^6/uL Hgb (12.0-16.0) g/dL Hct (36-46) % MCV (80-100) fL MCH (26-34) PG MCHC (30-36) % RDW (11.6-14.8) % Plt Count (150-400) X10^3/uL Neut % (Auto) (50-75) % Lymph % (Auto) (25-40) % Harding % (Auto) (3-14) % Eos % (Auto) (2-4) % Baso % (Auto) (0-2) % Neut # (Auto) (2743-8685) /uL Lymph # (Auto) (7028-7502) /uL Harding # (Auto) (0-900) /uL Eos # (Auto) (0-450) /uL Baso # (Auto) (0-100) /uL PT (9.4-12.5) SECONDS INR (0.9-1.3) APTT 52 H 57 H (25.1-36.5) SECONDS Sodium (137-145) mmol/L Potassium (3.4-5.1) mmol/L Chloride (98-107) mmol/L Carbon Dioxide (22-32) mmol/L BUN (7-17) mg/dL Creatinine (0.52-1.04) mg/dL Estimated GFR (>60) mL/min BUN/Creatinine Ratio (6-22) Glucose (80-110) mg/dL Calcium (8.4-10.2) mg/dL Magnesium (1.6-2.3) mg/dL Total Bilirubin (0.2-1.3) mg/dL AST (14-36) IU/L ALT (<35) IU/L Alkaline Phosphatase (38-126) U/L Total Creatine Kinase (30-135) U/L Troponin I (0.01-0.034) ng/mL NT-Pro-B Natriuret Pep (<125) pg/mL Total Protein (6.3-8.2) g/dL Albumin (3.5-5.0) g/dL Globulin (1.7-4.1) g/dL Albumin/Globulin Ratio (1.0-2.8) Lipase (23-300) U/L Point of Care Testing Glucose POC 183 MDM Narrative Medical decision making narrative: 69-year-old female with lower chest upper epigastric discomfort, recent upper respiratory infections, treated with course of oral Augmentin antibiotic for sinus infection and ear infection, still coughing, using inhaler, requests breathing treatment. No oxygen requirement. No reproducibility epigastrium or chest for her discomfort. EKG without ischemic changes. Troponin negative. Repeat EKG at 10:15 a.m.. Sinus rhythm rate [address] elevation or depression Chest x-ray single view. No acute findings. See tele radiology report. CT chest abdomen pelvis, coronary artery calcification seen. Otherwise no acute finding 0700, Interval troponin pending, signed out to Dr Apodaca. troponin less than 0.012 x 2 May 23, 2024 at 7:[address] Apodaca: Sign out from Dr. Latham, patient here for non reproducible epigastric chest pain radiating to the back. Second troponin results are pending. 7:[address] Apodaca: Spoke with patient. She states she has been wearing last couple of minutes have had any exertional shortness breath and off and on chest discomfort and epigastric discomfort. She states she does have history of gastritis and gastroparesis but this feels different. She has had upper respiratory symptoms for the past days but it does not reproduce her symptoms. She has medical care with [facility] and she understands we will need to call them for authorization for admission or transfer. At this time we do not beds here and may need to transfer to another outlying hospital, she understands. Patient does have mild epigastric tenderness. No chest pain at this time. 8:19 a.m.. Spoke with [facility], Dr. Akers, he approves for patient to be admitted or transferred. 1:49 p.m.. Spoke with [facility] cardiology, dr sommer, who will follow up patient in consult. Recommends heparin started now. Would recommend having echo at their facility and heart catheterization. 6:[address] Apodaca: Sign out back to Dr. Latham, patient results has been reviewed with [facility], who feels patient will need heart catheterization. He had a heparin has been started. Awaiting for call back from hospitalist and bed availability. Patient is aware need for transfer. 05/23/24, 1899, [place]. Sign-out from Dr. Apodaca, patient familiar to me from initial sign-out, at which time 2nd troponin was pending. Troponin negative. Patient on IV heparin for presumed ACS cause of her chest/epigastric area discomfort, accepted for transfer to [facility] in anticipation of cardiac catheterization, awaiting bed availability. Assumed interim care. 0700, still awaiting transfer, on heparin, signed out to oncoming ED shift physician Dr Mclaughlin 05.24.24 @ 0700: Dr. Mclaughlin, patient is signed out to me by overnight provider, patient had initially came in complaining of chest pain with epigastric pain, patient has been diagnosed with atypical chest pain pending transfer to [facility] for stress echo catheterization, patient currently on heparin drip, no overnight events, we will continue to monitor, patient still pending bed will reach out to figure out ETA. 1352: Had a discussion with Dr. Craven at [facility] who accepts the admission and transfer, transfer center states will call back for bed availability but states should be within the next few hours. 1530: Patient was re-evaluated, she was feeling some palpitations when she went to the restroom, after returning to the bed patient noted to be in atrial fibrillation, EKG AFib at 1:56 a.m. QTC [address] changes no STEMI, we will try a dose of IV Lopressor 5 mg 1802: Patient re-evaluated still intermittently in rapid AFib, however patient having multiple episodes of needing to urinate, 1 L normal saline ordered, 2 g of Mag. Given patient persistently in rapid AFib we will start Cardizem drip. Discharge Plan Departure Patient Disposition: [facility] Clinical Impression: Atypical chest pain, New onset a-fib Prescriptions: No Action pantoprazole 40 mg tablet,delayed release (DR/EC) 40 mg PO DAILY (DME) OneTouch Verio test strips Strip See Rx Instructions .ROUTE .MEDSUPPLY Qty: 10 Rx Instructions: As directed metformin 1,000 mg tablet 1,000 mg PO BID pravastatin 10 mg tablet 10 mg PO DAILY Alvesco 80 mcg/actuation HFA aerosol inhaler 1 puff inhalation BID Patient Comments: INHALE 1 PUFF INTO THE LUNGS TWICE DAILY glipizide 5 mg tablet 10 mg PO BID sertraline 25 mg tablet 25 mg PO DAILY Qty: 0 hydrochlorothiazide 25 mg tablet 25 mg PO DAILY famotidine [Pepcid] 20 mg tablet 20 mg PO BID PRN (Reason: Acid Reflux) albuterol sulfate 90 mcg/actuation HFA aerosol inhaler 2 puff INHALATION Q6H PRN (Reason: wheezing) promethazine 25 mg Tablet 25 mg PO QID PRN (Reason: nausea/vomiting/gastroparesis) Flonase Sensimist 27.5 mcg/actuation spray,suspension 1 - 2 spray intranasal DAILY insulin glargine-yfgn 100 unit/mL (3 mL) insulin pen 40 unit SUBCUT 1XD Patient Comments: [NO ORIGINAL SIG] Rx Instructions: QHS acetaminophen 1,000 mg PO Q6HR PRN (Reason: Pain (Scale Score 1-3)) Referrals: Anju Christiansen ARNP [Primary Care Provider] -
[2024-05-23] MEDS: ALBUTEROL 2.5 MG/3 ML NEB (ADULT) INH ×2 (06:47→06:57)
--- NOTE | 2024-05-23 07:44 | DI.CT.S_ITS ---
PROCEDURE: CT CHEST ABD PEL WO CON INDICATIONS: /Chest pain/abdominal pain TECHNIQUE: After the administration of oral contrast, 5 mm thick sections acquired from the lung apices to the symphysis pubis. 5 mm thick coronal and sagittal reformats acquired, with additional 7 mm coronal MIP reformats through the lungs. For radiation dose reduction, the following was used: automated exposure control, adjustment of mA and/or kV according to patient size. COMPARISON: None. FINDINGS: Image quality: Diagnostic. CHEST: Lower Neck: No enlarged lymph nodes. Thyroid: No thyroid nodules which require sonographic follow up, per consensus guidelines. Axillae: No enlarged lymph nodes. Chest Wall: Unremarkable. Bones: Unremarkable. Lungs and Pleura: No pneumothorax or pleural effusions. Multiple tiny 2 mm pulmonary nodules, too small to characterize, likely benign. Incidental pneumatocele, left lower lobe, image 254 of series 3. Heart: Heart size is normal. Dense LAD calcifications. No pericardial effusion. Thoracic Vessels: The aorta and pulmonary arteries demonstrate normal size. Mediastinum and Aleshia: No enlarged lymph nodes. Esophagus: No wall thickening. Small hiatal hernia. ABDOMEN: Liver: No solid mass. Gallbladder: Absent Biliary ducts: No biliary dilation. Pancreas: No ductal dilation. Spleen: Size is within normal limits. Adrenal Glands: No adrenal nodules. Kidneys and Ureters: No hydronephrosis. No solid mass. No complex renal cystic lesion which requires follow up. Stomach and Bowel: Normal colonic caliber, without significant wall thickening. Sigmoid diverticulosis. No acute diverticulitis identified. Peritoneum: No abnormal intraperitoneal fluid. No free air. Ventral Wall: No hernia. Abdominal Nodes: No retroperitoneal or mesenteric adenopathy by size criteria. Vessels: Aorta and inferior vena cava are normal in size. PELVIS: Pelvic Organs: Uterus is surgically absent. No adnexal masses. Bladder: No abnormal wall thickening allowing for underdistention. Pelvic Nodes: No enlarged lymph nodes. Miscellaneous: No inguinal hernias are seen. Bones: No aggressive osseous abnormality. IMPRESSION: 1. No evidence acute process in the chest, abdomen, and pelvis. 2. Note made of dense LAD coronary artery calcifications. 3. Small hiatal hernia. 4. Diverticulosis. 5. Remote cholecystectomy and hysterectomy. Dictated by: Sukhdeep Brand M.D. on 05/23/2024 at 8:15 Approved by: Sukhdeep Brand M.D. on 05/23/2024 at 8:21
[2024-05-23 07:58] LABS: Troponin I < 0.012 ng/mL (0.01-0.034)
--- NOTE | 2024-05-23 10:15 | EKG_ITS ---
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
[2024-05-23] MEDS: PANTOPRAZOLE 40 MG VIAL IV (11:01)
[2024-05-23] MEDS: NITROGLYCERIN OINT 1 INCH/GM OINT...G. TOP (12:22)
[2024-05-23] MEDS: HEPARIN DRIP 25,000 UNIT/500 ML IV.SOLN 19.995 UNIT IV (14:14)
--- NOTE | 2024-05-23 16:50 | PC.NURSE ---
Nitro-Paste removed
[2024-05-23] MEDS: SODIUM CHLORIDE 0.9% 1,000 ML 100 ML IV (19:00)
[2024-05-23 20:29] LABS: PTT Partial Thromboplastin Tim 50 SECONDS (25.1-36.5)
--- NOTE | 2024-05-23 21:28 | PC.NURSE ---
Addendum entered by Vanita Velazquez CNA 05/24/24 01:21: [facility] to confirm this where this pt is approved for transfer and the lady I spoke with let me know that since this pt also has medicare that they can be transferred anywhere. She informed me that the person we talked to earlier incorrectly informed us of where this pt can go. I then called [facility]= no beds. She is on the waitlist at [facility] and they said to call back after discharges in the morning of 05/24. Original Note: Pt has [employer] insurance, [place] approved pt to be transferred to [facility], [facility], or [facility] only. as of 829 on 05/23 pt is on the waitlist for [facility] and [facility]. Called [facility] @ [address] the pt on waitlist and they said they are still at an over 24 hr wait.
[2024-05-23] MEDS: PROMETHAZINE 25 MG TABLET PO (22:25)
--- NOTE | 2024-05-23 23:34 | PC.NURSE ---
Pt ambulatory to restroom without difficulty or assistance. Settled into hospital bed with call light within reach. Placed back on cardiac, resp, blood pressure, and pulse ox monitors with alarms on and audible.
[2024-05-24] VITALS (45 sets, daily range): BP systolic 94–155; BP diastolic 57–92; PULSE 81–170; RESP 0–33; O2SAT 90–98
--- NOTE | 2024-05-24 01:53 | PC.NURSE ---
PT ambulatory to restroom without difficulty or assistance. Ptt drawn from existing IV left upper arm without difficulty.
[2024-05-24 02:09] LABS: PTT Partial Thromboplastin Tim 53 SECONDS (25.1-36.5)
[2024-05-24 02:23] LABS: Add Manual Diff / Slide Review NO; Basophils Absolute Auto 0 /uL (0-100); Basophils Percent Auto 0.7 % (0-2); Eosinophils Absolute Auto 100 /uL (0-450); Hematocrit 40.1 % (36-46); Hemoglobin 13.1 g/dL (12.0-16.0); Lymphocytes Absolute Auto 800 /uL (1100-4500); Lymphocytes Percent Auto 13.2 % (25-40); Mean Corpuscular HGB Conc 32.8 % (30-36); Mean Corpuscular Hemoglobin 28.5 PG (26-34); Monocytes Absolute Auto 200 /uL (0-900); Monocytes Percent Auto 3.5 % (3-14); Neutrophils Absolute Auto 5200 /uL (1500-7000); Neutrophils Percent Auto 81.6 % (50-75); Platelet Count 238 X10^3/uL (150-400); Red Blood Cell Count 4.61 X10^6/uL (4.0-5.2); Red Cell Distribution Width 14.7 % (11.6-14.8); White Blood Cell Count 6.3 X10^3/uL (4.5-11.0)
[2024-05-24 03:28] LABS: Alanine Aminotransferase 18 IU/L (<35); Albumin 3.7 g/dL (3.5-5.0); Albumin Globulin Ratio 1.4 (1.0-2.8); Alkaline Phosphatase 68 U/L (38-126); Aspartate Aminotransferase 22 IU/L (14-36); BUN Creatinine Ratio 16.7 (6-22); Bilirubin Total 1.1 mg/dL (0.2-1.3); Blood Urea Nitrogen 10 mg/dL (7-17); Calcium 8.9 mg/dL (8.4-10.2); Carbon Dioxide 27 mmol/L (22-32); Chloride 106 mmol/L (98-107); Estimated Glomerular Filt Rate > 60 mL/min (>60); Globulin 2.7 g/dL (1.7-4.1); Glucose 215 mg/dL (80-110); HEMOLYSIS < 15 (0-50); Sodium 138 mmol/L (137-145); Total Protein 6.4 g/dL (6.3-8.2)
--- NOTE | 2024-05-24 05:20 | PC.NURSE ---
Pt ambulatory to restroom without difficulty or assistance.
--- NOTE | 2024-05-24 05:26 | PC.NURSE ---
Ambulatory to restroom without difficulty or assistance
[2024-05-24] MEDS: PANTOPRAZOLE 40 MG VIAL IV (08:06)
[2024-05-24] MEDS: SODIUM CHLORIDE 0.9% 1,000 ML 100 ML IV (08:06)
[2024-05-24 09:10] LABS: PTT Partial Thromboplastin Tim 52 SECONDS (25.1-36.5)
[2024-05-24] MEDS: PROMETHAZINE 25 MG TABLET PO (09:34)
--- NOTE | 2024-05-24 10:11 | PC.NURSE ---
Patient states that Dr. Apodaca told her yesterday to take her own diabetic medications. Patient reports that she didn't take her lantus last night but only takes it at night. Patient states that she took 1000mg Metformin and 5mg Glipazide. This RN informed patient that we would give all future doses while in hospital. Patient informed we do not have glipizide and it patient could have spouse bring their supply in originals bottle that this RN would send for verification of pharmacy for future medication dose administrations. Patient verbalized understanding. Dr. Mclaughlin informed.
--- NOTE | 2024-05-24 11:58 | PC.NURSE ---
Patient states that her chest pain is resolved now. She stated that the last time she had felt pain was in the middle of the night. She stated that when she was up walking to the restroom she was slightly dizzy but denied having pain or pressure of any kind. She is attempting to take some bites of food but claims that her food is just sitting in her stomach. She denies nausea.
[2024-05-24 14:40] LABS: PTT Partial Thromboplastin Tim 57 SECONDS (25.1-36.5)
[2024-05-24] MEDS: ACETAMINOPHEN 325 MG TABLET 975 MG PO (15:08)
--- NOTE | 2024-05-24 15:17 | EKG_ITS ---
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
[2024-05-24] MEDS: HEPARIN DRIP 25,000 UNIT/500 ML IV.SOLN 19.995 UNIT IV (15:28)
[2024-05-24] MEDS: METOPROLOL TARTRATE 5 MG/5 ML INJ IV (15:35)
[2024-05-24] MEDS: MAGNESIUM SULFATE 2 GM/50 ML PIGGYBACK IV (16:44)
[2024-05-24] MEDS: SODIUM CHLORIDE 0.9% 1,000 ML 1000 ML IV (17:25)
[2024-05-24] MEDS: dilTIAZem 125 MG in SODIUM CHLORIDE 0.9% 100 ML IV (18:08)
== END 2024-05-24 19:30 | disposition short-term general hospital (02) ==
PROVIDERS: Emergency Medicine; Emergency Provider Student in an Organized Health Care Education/Training Program; PCP Registered Nurse
DX: I48.91 Unspecified atrial fibrillation (principal); R07.89 Other chest pain; R05.9 Cough, unspecified; R10.13 Epigastric pain
CPT/HCPCS: 36415; 71045; 71250; 74176; 80053; 82550; 82962; 83690; 83735; 83880; 84484; 85025; 85610; 85730; 93005; 94640; 96365; 96366; 96368; 96375; 96376; 99285; J1644; J2470; J3475; J7613

== ENCOUNTER 2024-05-31 17:19 | Emergency (ER) | payer OTHER, SELFPAY ==
[2024-05-31 17:38] VITALS: BP 127/81; PULSE 82; RESP 16; TEMP 36.4; O2SAT 95
--- NOTE | 2024-05-31 17:59 | DI.CT.S_ITS ---
PROCEDURE: CT HEAD/BRAIN WO CON INDICATIONS: headache, newly starting blood thinners. TECHNIQUE: Noncontrast 4.5 mm thick angled axial sections acquired from the foramen magnum to the vertex, with coronal and sagittal reformats. For radiation dose reduction, the following was used: automated exposure control, adjustment of mA and/or kV according to patient size. COMPARISON: None. FINDINGS: Image quality: Diagnostic. CSF spaces: Basal cisterns are patent. No extra-axial fluid collections. Ventricles are normal in size and shape. Brain: No midline shift. No intracranial masses or hemorrhage. Duarte-white matter interface is within normal limits. Skull and face: Calvarium and visualized facial bones are intact, without suspicious lesions. Sinuses: Visualized sinuses and mastoids are clear. IMPRESSION: No acute intracranial hemorrhage. Dictated by: Isidro Travis M.D. on 05/31/2024 at 19:10 Approved by: Isidro Travis M.D. on 05/31/2024 at 19:12
--- NOTE | 2024-05-31 18:25 | ED_ITS ---
HPI - Headache General Chief Complaint: Headache Stated Complaint: MARTINEZ x3days, just started blood thinners Time Seen by Provider: 05/31/24 18:25 Mode of arrival: Ambulatory History of Present Illness HPI Narrative: 69-year-old woman with History of diabetes, reflux, gastroparesis hypertension, hyperlipidemia presents with3 days of a constant throbbing headache after starting Eliquis on May 27 for atrial fibrillation. Over the last 6-8 weeks she has had multiple medical issues, hospitalizations has been in bed extensively is complaining of neck pain and recently felt the headache that has been present for 3 days. Not associated with additional vomiting or nausea beyond her baseline. No neurologic changes and no vision abnormalities. no acute neurologic complaints. No fevers or chills. She comes in for further evaluation Related Data Home Medications Medication Instructions Recorded Confirmed blood sugar diagnostic (OneTouch #10 ea 08/21/21 05/23/24 Verio test strips) ciclesonide 80 mcg/actuation 1 puff inhalation BID 08/21/21 05/23/24 aerosol inhaler (Alvesco) famotidine 20 mg tablet (Pepcid) 20 mg PO BID PRN Acid Reflux 08/21/21 05/23/24 glipizide 5 mg tablet 10 mg PO BID 08/21/21 05/23/24 hydrochlorothiazide 25 mg tablet 25 mg PO DAILY 08/21/21 05/23/24 metformin 1,000 mg tablet 1,000 mg PO BID 08/21/21 05/23/24 pravastatin 10 mg tablet 10 mg PO DAILY 08/21/21 05/23/24 sertraline 25 mg tablet 25 mg PO DAILY #0 tabs 08/21/21 05/23/24 pantoprazole 40 mg tablet,delayed 40 mg PO DAILY 12/17/21 05/23/24 release acetaminophen 1,000 mg PO Q6HR PRN Pain (Scale 05/23/24 05/23/24 Score 1-3) albuterol sulfate 90 mcg/actuation 2 puff inhalation Q6H PRN wheezing 05/23/24 05/23/24 aerosol inhaler fluticasone furoate 27.5 1 - 2 spray intranasal DAILY 05/23/24 05/23/24 mcg/actuation nasal spray,suspension (Flonase Sensimist) insulin glargine-yfgn 100 unit/mL 40 unit SUBCUT 1XD 05/23/24 05/23/24 (3 mL) subcutaneous pen promethazine 25 mg tablet 25 mg PO QID PRN 05/23/24 05/23/24 nausea/vomiting/gastroparesis Previous Rx's Medication Instructions Recorded diazepam 5 mg tablet 5 mg PO BID PRN muscle spasm and 05/31/24 headache #10 tabs Allergies Allergy/AdvReac Type Severity Reaction Status Date / Time levofloxacin Allergy Severe Muscle Pain Verified 05/23/24 04:50 iodine AdvReac Severe Swelling Verified 05/31/24 17:38 of Lip/Tongue/Throat CT DYE Allergy Severe STOP Uncoded 12/17/21 13:01 BREATHING Review of Systems Review of Systems Narrative: Pertinent positive and negative findings as per HPI Patient History Medical History Skin rash Sjogren's syndrome Sleep apnea (~1999) Headache Knee pain Back pain Foot pain History of urinary incontinence (~2017) History of uterine cancer (~2013) History of colon polyps Severe obesity Depression, major, recurrent GERD without esophagitis Asthma Mixed hyperlipidemia DM type 2 with diabetic dyslipidemia (~2017) Bilateral lower extremity edema History of uterine cancer Connective tissue disease Fibromyalgia HTN (hypertension) Surgical History Anesthesia Status post bilateral salpingo-oophorectomy (BSO) (~2014) Status post cholecystectomy (~1984) Family History Father COPD (chronic obstructive pulmonary disease) Sepsis Mother History of heart disease Hyperlipidemia Brother History of heart disease Diabetes mellitus Hyperlipidemia Sister COPD (chronic obstructive pulmonary disease) History of heart disease Diabetes mellitus Hyperlipidemia Grandmother Cancer Social History Smoking Status: Never smoker Smoking Status: Never smoker alcohol intake frequency: holidays/special occasions only Exam Initial Vital Signs Initial Vital Signs: Vital Signs Temperature 97.6 F 05/31/24 17:38 Pulse Rate 82 05/31/24 17:38 Respiratory Rate 16 05/31/24 17:38 Blood Pressure 127/81 05/31/24 17:38 Pulse Oximetry 95 05/31/24 17:38 Oxygen Delivery Method Room Air 05/31/24 17:38 General: Alert appropriate in no acute distress HEENT: Pupils are equal and reactive. She does have significant right-sided trapezius muscle spasm extending to right-sided occipital insertion which with palpation directly reproduces her head pain Respiratory: Able to speak in full sentences, no obvious respiratory distress Skin: No obvious rashes, warm and dry Neurologic: Grossly intact no obvious asymmetries or abnormalities Psych: appropriate insight and affect, cooperative Course Orders Ordered: ED Orders 05/31/24 17:51 Complete Blood Count AUTO DIFF Stat Comprehensive Metabolic Panel Stat Lipase Stat Magnesium Stat NT-proBNP (BNP-Adult 18+) Stat PTT Partial Thromboplastin Ramirez Stat Prothrombin Time INR Stat Troponin & CK Cardiac Panel Stat 05/31/24 17:59 CT head/brain wo con Stat Vital Signs Vital signs: Vital Signs - 8 hr 05/31/24 17:38 Temperature 97.6 F Pulse Rate 82 Respiratory Rate 16 Blood Pressure 127/81 Pulse Oximetry 95 Oxygen Delivery Method Room Air MDM - Headache MDM Narrative Medical decision making narrative: 69-year-old woman recently started on Eliquis 3 days of right-sided head pain came in to make sure that the Eliquis has not caused any intracranial hemorrhage. She has had multiple hospitalizations has been in bed quite a bit due to recent illnesses does complain of right neck pain has significant spasm and palpation along the right occipital insertion site reproduces her head pain. She has not been having fevers. She notes that her baseline gastroparesis and nausea has not significantly changed. No other neurologic complaints. CT scan of the head is unremarkable. With shared decision-making based on clinical exam and the fact that she would like to be discharged sooner rather than later, we decided to not proceed with any additional lab work. Given the Eliquis her drug of choice, ibuprofen, is no longer an option. She has been using Tylenol and has not found it particularly effective. We discussed adding either a muscle relaxer or narcotic to help with the acute pain. She would prefer to try the muscle relaxer. To that end prescription for diazepam to use at night in co mbination with Tylenol is recommended in the prescription is sent to [facility]. At this point there was no indication for further workup, hospitalization or additional imaging. She is safe for discharge Discharge Plan Departure Patient Disposition: Home Clinical Impression: Spasm of right trapezius muscle Headache Qualifiers: Headache type: cervicogenic headache Qualified Code(s): G44.86 - Cervicogenic headache Instructions: DI for Hormonal and Tension Headaches Activity Restrictions/Additional Instructions: thank you for coming in tonight the CT scan of your head does not show any intracranial hemorrhage on exam, your right trapezius muscle is quite tense, where hooks into the base of your skull seems to exacerbate your pain. I suspect this is the source of your headache. You can continue to use Tylenol however, ibuprofen and similar are no longer an option given your Eliquis. I have sent a prescription for diazepam to [facility]. This acts as a direct muscle relaxant and hopefully will help you sleep a bit so that twisting and turning in bed we will not wake you up from pain. If you find that you are getting worse or developing new symptoms, please return to the ER Prescriptions: New diazepam 5 mg tablet 5 mg PO BID PRN (Reason: muscle spasm and headache) Qty: 10 0RF No Action pantoprazole 40 mg tablet,delayed release (DR/EC) 40 mg PO DAILY (DME) OneTouch Verio test strips Strip See Rx Instructions .ROUTE .MEDSUPPLY Qty: 10 Rx Instructions: As directed metformin 1,000 mg tablet 1,000 mg PO BID pravastatin 10 mg tablet 10 mg PO DAILY Alvesco 80 mcg/actuation HFA aerosol inhaler 1 puff inhalation BID Patient Comments: INHALE 1 PUFF INTO THE LUNGS TWICE DAILY glipizide 5 mg tablet 10 mg PO BID sertraline 25 mg tablet 25 mg PO DAILY Qty: 0 hydrochlorothiazide 25 mg tablet 25 mg PO DAILY famotidine [Pepcid] 20 mg tablet 20 mg PO BID PRN (Reason: Acid Reflux) albuterol sulfate 90 mcg/actuation HFA aerosol inhaler 2 puff INHALATION Q6H PRN (Reason: wheezing) promethazine 25 mg Tablet 25 mg PO QID PRN (Reason: nausea/vomiting/gastroparesis) Flonase Sensimist 27.5 mcg/actuation spray,suspension 1 - 2 spray intranasal DAILY insulin glargine-yfgn 100 unit/mL (3 mL) insulin pen 40 unit SUBCUT 1XD Patient Comments: [NO ORIGINAL SIG] Rx Instructions: QHS acetaminophen 1,000 mg PO Q6HR PRN (Reason: Pain (Scale Score 1-3)) Referrals: Anju Christiansen BOX BLANK MACHINE 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
[2024-05-31 20:03] VITALS: BP 134/91; PULSE 69; RESP 18; O2SAT 97
== END 2024-05-31 20:06 | disposition home or self-care (01) ==
PROVIDERS: Emergency Provider Emergency Medicine; PCP Registered Nurse
DX: G44.86 Cervicogenic headache (principal); M62.838 Other muscle spasm; I48.91 Unspecified atrial fibrillation; Z79.01 Long term (current) use of anticoagulants
CPT/HCPCS: 70450; 99281; 99284

== ENCOUNTER → 2025-01-09 10:00 | Outpatient (CLI) | payer OTHER, SELFPAY ==
--- NOTE | 2025-01-09 10:01 | DI.RAD.S_ITS ---
PROCEDURE: XR DEXA AXIAL SKELETON INDICATIONS: Screening COMPARISON: None. FINDINGS: Lumbar Spine: Bone mineral density 1.100 g/cm2, T score 0.5, normal,. Left Femoral Neck: Bone mineral density 0.686 g/cm2, T score -1.5, osteopenia. Left Hip: Bone mineral density 0.923 g/cm2, T score -0.2, normal. Fracture Risk Calculation (when applicable): 10-year fracture risk of a major osteoporotic fracture 13 percent and of a hip fracture 1.9 percent. (T score greater or equal to -1.0 to: NORMAL) (T score from -1.1 to -2.4: OSTEOPENIA) (T score less than or equal to -2.5: OSTEOPOROSIS) IMPRESSION: Osteopenia elevates the patient's 10 year fracture risk as described. Follow-up guidelines as follows: Osteoporosis: Consider a repeat DEXA and Vertebral Fracture Assessment (VFA) exam in 2 years or sooner if medically necessary, to reassess this patient's status. Osteopenia: Consider a repeat DEXA in 2-3 years to reassess this patient's status, or if there is a new clinical indication. Normal: Consider a repeat DEXA in 5 years or sooner, or if there is a new clinical indication. All treatment decisions require clinical judgment and consideration of individual patient factors, including patient preferences, comorbidities, previous drug use, risk factors not captured in the FRAX model (e.g., frailty, falls, vitamin D deficiency, increased bone turnover, interval significant decline in bone density ) and possible under- or over-estimation of fracture risk by FRAX. In addition, the NOF Guide recommends that FDA-approved medical therapies be considered in postmenopausal women and men age >= 50 years with a: * Hip or vertebral (clinical or morphometric) fracture * T-score of <=-2.5 at the spine or hip * Ten-year fracture probability by FRAX of >= 3% for hip fracture or >=20% for major osteoporotic fracture. Dictated by: Jessica Crockett M.D. on 01/09/2025 at 16:17 Approved by: Jessica Crockett M.D. on 01/09/2025 at 17:17
--- NOTE | 2025-01-09 10:01 | DI.MG.S_ITS ---
MM screening mammo BI: 01/09/2025. BI-RADS: 1 CLINICAL: 70-year old female for bilateral screening mammogram. Tyrer-Cuzick lifetime risk of 6.1%. No personal or first-degree family history of breast cancer. Current reported family history of breast cancer: maternal aunt. PRIOR EXAMS 01/20/2023, 05/12/2018, 02/06/2016. MAMMOGRAPHY TECHNIQUE: 2D and 3D (tomosynthesis) digital mammographic views obtained, with additional images as needed for full coverage. Current study was also evaluated with a Computer Aided Detection (CAD) system. DENSITY B. There are scattered areas of fibroglandular density. MAMMOGRAPHY FINDINGS Bilateral: No suspicious mass, asymmetry, microcalcification, or other abnormality seen. IMPRESSION: * No evidence of malignancy. RECOMMENDATIONS Bilateral * Annual screening mammography. OVERALL ASSESSMENT CATEGORY BI-RADS-1: Negative. The [employer] recommends annual screening mammography beginning at age 40 for women with average risk of breast cancer. ELECTRONICALLY SIGNED: Angeli Mercado M.D. on 01/09/2025 at 10:05:58 PM PT Interpreting Station ID: [id number]
== END ==
LOC: MAMMO 10:01
PROVIDERS: PCP Registered Nurse; Referring Provider Registered Nurse; Visit Provider Registered Nurse
DX: Z12.31 Encounter for screening mammogram for malignant neoplasm of breast (principal); Z80.3 Family history of malignant neoplasm of breast; Z13.820 Encounter for screening for osteoporosis; M85.852 Other specified disorders of bone density and structure, left thigh; Z78.0 Asymptomatic menopausal state
CPT/HCPCS: 77063; 77067; 77080